=== PATIENT | female | born 1970 | race Asian ===

== ENCOUNTER → 2017-01-02 | Outpatient (CLI) | payer BC ==
[~2017-01-02] MED LIST: COEN75CA PO; FERR1TAB61 PO; FEXO1TAB46 PO; HYDR-5688 PO; MULT1CAP16 PO; PRENTAB26 PO
--- NOTE | 2017-01-03 08:02 | MAMMOGRAPHY REPORT ---
BILATERAL DIGITAL SCREENING MAMMOGRAM TOMOSYNTHESIS WITH CAD: 01/02/2017 CLINICAL HISTORY: Routine screening. Patient has no complaints. TECHNIQUE: Breast tomosynthesis in addition to standard 2D mammography was performed. Current study was also evaluated with a Computer Aided Detection (CAD) system. COMPARISON: No prior exams were available for comparison. BREAST COMPOSITION: The tissue of both breasts is heterogeneously dense, which may obscure small mas ses. FINDINGS: No suspicious mass, architectural distortion or cluster of microcalcifications is seen. IMPRESSION: ACR BI-RADS CATEGORY 1: NEGATIVE There is no mammographic evidence of malignancy. A 1 year screening mammogram is recommended. The pa tient will receive written notification of the results. Approximately 10% of breast cancers are not detected with mammography. A negative mammographic report should not delay biopsy if a clinically suggestive mass is present. Petra graham/jesus:01/02/2017 17:08:07 Manager Planning: Cyndee ROJAS)(Liz), [facility] letter sent: Normal 1/2 BI-RADS Code: ACR BI-RADS Category 1: Negative
== END | disposition home or self-care (01) ==
LOC: C.MAMM 09:05
PROVIDERS: ATTEND Physician Assistant
DX: Z12.31 Encounter for screening mammogram for malignant neoplasm of breast (principal)

== ENCOUNTER → 2017-01-10 | Outpatient (CLI) | payer BC ==
[2017-01-10 14:36] LABS: THYROID STIMULATING HORMONE 1.65 uIu/ml (0.300-4.500)
== END | disposition home or self-care (01) ==
LOC: C.LABBC 11:34
PROVIDERS: ATTEND Physician Assistant
DX: Z87.898 Personal history of other specified conditions (principal); E07.9 Disorder of thyroid, unspecified

== ENCOUNTER → 2017-01-17 | Outpatient (CLI) | payer BC ==
[~2017-01-17] MED LIST changes: -COEN75CA PO; -FERR1TAB61 PO; -FEXO1TAB46 PO; -HYDR-5688 PO; -MULT1CAP16 PO
[2017-01-17 18:36] LABS: BASO % 0.9 %; BASO ABS # 0.06 K/uL (0-0.2); COMPLETE YES; EOS % 3.6 %; HEMATOCRIT 41.9 % (37-47); IG% 0.1 %; LYMPH ABS # 2.16 K/uL (1.2-3.4); MEAN CELL VOLUME 85.7 fL (80-100); MEAN CORPUSCULAR HEMOGLOBIN 26.8 pg (25-34); MEAN CORPUSCULAR HGB CONC 31.3 g/dl (32-36); MEAN PLATELET VOLUME 10.5 fL (7.4-10.4); MONO % 8.3 %; NEUT % 55.1 %; PLATELET COUNT 252 K/uL (130-400); RED BLOOD COUNT 4.89 M/uL (4.2-5.4); WHITE BLOOD COUNT 6.75 K/uL (4.8-10.8)
[2017-01-17 18:59] LABS: ALT/SGPT 26 U/L (12-78); BLOOD UREA NITROGEN 15 mg/dl (7-18); BUN/CREATININE RATIO 19.4 (10-20); CARBON DIOXIDE 28 mmol/L (21-32); CHLORIDE 107 mmol/L (98-107); CREATININE 0.77 mg/dl (0.60-1.20); GLUCOSE 75 mg/dl (70-99); POTASSIUM 4.1 mmol/L (3.5-5.1); SODIUM 141 mmol/L (136-145)
[2017-01-17 19:09] LABS: ALB/GLOB RATIO 1.1 (0.9-2); ALKALINE PHOSPHATASE 69 U/L (45-117); AST/SGOT 17 U/L (15-37)
[2017-01-17 19:47] LABS: LYME DISEASE AB IGG NEG (NEG); LYME DISEASE AB IGM NEG (NEG)
== END | disposition home or self-care (01) ==
LOC: C.LAB 17:32
PROVIDERS: ATTEND Internal Medicine
DX: R53.83 Other fatigue (principal); M79.1 Myalgia

== ENCOUNTER → 2017-05-02 | Outpatient (CLI) | payer BC ==
[~2017-05-02] MED LIST changes: +OPTIRAY 320 IV PRN
--- NOTE | 2017-05-02 16:49 | DIAGNOSTIC IMAGING REPORT ---
ABDOMEN AND PELVIS CT WITH IV AND ORAL CONTRAST CT DOSE: 583.54 mGy.cm HISTORY: R10.9 left lower quadrant abdominal pain, constipation.[id number] TECHNIQUE: Multiaxial CT images of the abdomen and pelvis were performed following the use of intravenous and oral contrast. A dose lowering technique was utilized adhering to the principles of ALARA. COMPARISON STUDY: None. FINDINGS: The lung bases are clear. No pneumoperitoneum. No pneumatosis. The liver, spleen, pancreas, gallbladder, and adrenal glands are unremarkable. The kidneys enhance normally. No hydronephrosis. No retroperitoneal lymphadenopathy. The bladder, uterus, bilateral adnexa are unremarkable. Trace pelvic free fluid. No evidence for bowel obstruction. Moderate to large amount well-formed stool seen throughout the colon. Abnormal appearance to the appendix which is focally distended and fluid-filled on image 317. This measures up to 11 mm in diameter. No surrounding inflammatory change at this time. IMPRESSION: 1. Abnormal appearance to the appendix which is focally distended and fluid-filled measuring up to 11 mm in diameter. There is no definite surrounding inflammatory change at this time. Therefore, this could represent a mucocele or early acute appendicitis. Surgical consultation is recommended. 2. Moderate to large amount of well-formed stool seen throughout the colon. 3. Trace pelvic free fluid which is likely physiologic. 4. No evidence for bowel obstruction. Electronically signed by: Alejo Robins M.D. 05/02/2017 4:47 PM Dictated Date/Time: 05/02/2017 4:38 PM
== END | disposition home or self-care (01) ==
LOC: C.CTS 12:41
PROVIDERS: ATTEND Physician Assistant
DX: R10.9 Unspecified abdominal pain (principal); K59.00 Constipation, unspecified; K38.8 Other specified diseases of appendix

== ENCOUNTER → 2017-05-03 | Outpatient (CLI) | payer BC ==
[~2017-05-03] MED LIST changes: -OPTIRAY 320 IV PRN
[2017-05-03 19:07] LABS: BASO % 0.7 %; BASO ABS # 0.04 K/uL (0-0.2); COMPLETE YES; EOS % 3.9 %; HEMATOCRIT 39.5 % (37-47); IG% 0.2 %; LYMPH % 35.3 %; LYMPH ABS # 2.16 K/uL (1.2-3.4); MEAN CELL VOLUME 85.3 fL (80-100); MEAN CORPUSCULAR HEMOGLOBIN 28.1 pg (25-34); MEAN CORPUSCULAR HGB CONC 32.9 g/dl (32-36); MEAN PLATELET VOLUME 10.7 fL (7.4-10.4); MONO % 8.7 %; NEUT % 51.2 %; PLATELET COUNT 244 K/uL (130-400); RED BLOOD COUNT 4.63 M/uL (4.2-5.4); WHITE BLOOD COUNT 6.12 K/uL (4.8-10.8)
[2017-05-03 19:32] LABS: ALT/SGPT 21 U/L (12-78); AST/SGOT 15 U/L (15-37); BLOOD UREA NITROGEN 14 mg/dl (7-18); BUN/CREATININE RATIO 17.4 (10-20); CARBON DIOXIDE 29 mmol/L (21-32); CHLORIDE 106 mmol/L (98-107); GLUCOSE 81 mg/dl (70-99); SODIUM 141 mmol/L (136-145)
[2017-05-03 19:35] LABS: ALB/GLOB RATIO 1.1 (0.9-2); ALKALINE PHOSPHATASE 74 U/L (45-117)
== END | disposition home or self-care (01) ==
LOC: C.LAB 17:24
PROVIDERS: ATTEND Physician Assistant
DX: R10.9 Unspecified abdominal pain (principal)

== ENCOUNTER → 2017-05-16 | Outpatient (CLI) | payer BC ==
[~2017-05-16] MED LIST changes: +COEN75CA PO; +FERR1TAB61 PO; +FEXO1TAB46 PO; +HYDR-5688 PO; +MULT1CAP16 PO; -PRENTAB26 PO
[2017-05-16 17:37] LABS: BASO % 0.6 %; BASO ABS # 0.03 K/uL (0-0.2); EOS % 4.4 %; HEMATOCRIT 37.6 % (37-47); IG% 0.2 %; LYMPH % 35.8 %; LYMPH ABS # 1.81 K/uL (1.2-3.4); MEAN CELL VOLUME 84.7 fL (80-100); MEAN CORPUSCULAR HEMOGLOBIN 27.3 pg (25-34); MEAN PLATELET VOLUME 10.2 fL (7.4-10.4); MONO % 7.1 %; NEUT % 51.9 %; PLATELET COUNT 180 K/uL (130-400); RED BLOOD COUNT 4.44 M/uL (4.2-5.4); WHITE BLOOD COUNT 5.05 K/uL (4.8-10.8)
[2017-05-16 17:53] LABS: COMPLETE YES; MEAN CORPUSCULAR HGB CONC 32.2 g/dl (32-36)
[2017-05-16 18:47] LABS: LYME DISEASE AB IGG NEG (NEG); LYME DISEASE AB IGM NEG (NEG)
== END | disposition home or self-care (01) ==
LOC: C.LAB 17:07
PROVIDERS: ATTEND Physician Assistant Medical
DX: T14.8XXA Other injury of unspecified body region, initial encounter (principal); W57.XXXA Bitten or stung by nonvenomous insect and other nonvenomous arthropods, initial encounter

== ENCOUNTER 2017-05-17 04:55 | Day surgery (SDC) | payer BC ==
[2017-05-15 09:40] VITALS: BMI 18.0
--- NOTE | 2017-05-15 10:18 | PAT Medication Instructions ---
Service Date May 15, 2017. Current Home Medication List Coenzyme Q10 (Ubidecarenone) (Co Q-10), 1 CAP PO QAM Ferrous Sulfate (Iron), 1 TAB PO DAILY PRN for ANEMIA Fexofenadine Hcl (Lora), 180 MG PO DAILY PRN for ALLERGIES Multiple Vitamins W/ Minerals (Multi Complete), 1 TAB PO QAM Medication Instructions For Your Scheduled Surgery - Do not take the following medications as of 05/15/17: Coenzyme Q10 (Ubidecarenone) (Co Q-10), 1 CAP PO QAM - Do not take the following medications the morning of surgery: Ferrous Sulfate (Iron), 1 TAB PO DAILY PRN for ANEMIA Fexofenadine Hcl (Lora), 180 MG PO DAILY PRN for ALLERGIES Multiple Vitamins W/ Minerals (Multi Complete), 1 TAB PO QAM *nothing at all to eat or drink after midnight* If you have any questions please call us at [phone] or [phone] or [phone]
[~2017-05-17] VITALS: Ht 172.7 cm; Wt 56.2 kg
[~2017-05-17 04:55] MED LIST changes: -HYDR-5688 PO
[2017-05-17] MEDS ORDERED: CEFAZOLIN SOD 1000MG/5 ML IV PUSH IV ONE (05:32)
[2017-05-17 05:52] VITALS: BP 122/50; PULSE 56; TEMP 36.6; O2SAT 100; Ht 172.7 cm; Wt 56.2 kg
[2017-05-17] MEDS ORDERED: CEFAZOLIN 1000MG IV PUSH 5 ML IV SCH (06:00)
[2017-05-17] MEDS ORDERED: LACTATED RINGER'S 1000ML 1,000 ML IV SCH (06:00)
[2017-05-17] MEDS ORDERED: FENTANYL CITRATE INJ 50 MCG/1 ML 2 ML VIAL ONE ×2 (06:31→07:12)
[2017-05-17] MEDS ORDERED: ONDANSETRON INJ 2 MG/ML 2 ML VIAL ONE (06:31)
[2017-05-17] MEDS ORDERED: MIDAZOLAM HCL 1 MG/ML 2ML VIAL ONE (06:31)
[2017-05-17] MEDS ORDERED: PROPOFOL IV EMULSION 10 MG/ML 20 ML VIAL IV ONE (06:31)
[2017-05-17] MEDS ORDERED: DEXAMETHASONE SOD INJ 4 MG/ML VIAL ONE (06:31)
[2017-05-17] MEDS ORDERED: LIDOCAINE HCL 2% 2 ML VIAL (20MG/ML) ONE (06:31)
[2017-05-17] MEDS ORDERED: EpINEphrine INJ 1MG/ML AMP 1 MG/ML AMP ONE (06:41)
[2017-05-17] MEDS ORDERED: BUPIVACAINE 0.5 % 5 MG/1 ML MPF 30ML VIAL ONE (06:42)
--- NOTE | 2017-05-17 06:50 | History & Physical Bridge Note ---
H&P Re-Evaluation Bridge Note: I have examined the patient, reviewed the History & Physical and in the interval since the performance of the History & Physical I have noted the following changes of clinical significance: No changes noted
[2017-05-17] MEDS ORDERED: MEPERIDINE HCL 25 MG/ML CARP IV PRN (07:45)
[2017-05-17] MEDS ORDERED: ONDANSETRON INJ 2 MG/ML 2 ML VIAL IV PRN ×2 (07:45→08:15)
[2017-05-17] MEDS ORDERED: ATROPINE SULFATE 0.1 MG/ML 5ML SYR IV PRN (07:45)
[2017-05-17] MEDS ORDERED: LABETALOL HCL IV 5 MG/ML 20ML IV PRN (07:45)
[2017-05-17] MEDS ORDERED: EpHEDrine SULFATE INJ 50 MG/ML AMP IV PRN (07:45)
[2017-05-17] MEDS ORDERED: HYDROmorphone INJ 1 MG/ML SYR IV PRN (07:45)
[2017-05-17] MEDS ORDERED: SODIUM CHLORIDE 0.9% 1000ML 1,000 ML IV SCH ×2 (08:12→13:15)
[2017-05-17] MEDS ORDERED: HYDR-5688 PO (08:14)
[2017-05-17] MEDS ORDERED: HYDROCODONE/ACETAMOPHEN 5/325MG TAB PO PRN ×2 (08:15)
--- NOTE | 2017-05-17 08:16 | Discharge Instructions ---
Discharge Instructions Date of Service May 17, 2017. Admission Reason for Admission: Mucocele Of Appendix Discharge Discharge Diagnosis / Problem: Mucocele of Appendix Discharge Goals Goal(s): Decrease discomfort, Improve function Activity Recommendations Activity Limitations: as noted below Lifting Limitations: no more than 10 pounds Exercise/Sports Limitations: until after follow-up appointment May Resume Sexual Activity: after follow-up appointment Shower/Bathe: tomorrow Driving or Machine Use: resume 1 day after discharge . Instructions / Follow-Up Instructions / Follow-Up Please follow-up with Dr. Hernandez in the office in 1-2 weeks. Please call the office at [phone] to make a follow-up appointment if you do not have one already. Please call the office with any questions or concerns. Current Hospital Diet Patient's current hospital diet: Discharge Diet Recommended Diet: Regular Diet Procedures Procedures Performed: Laparoscopic Appendectomy, Partial Cecectomy Pending Studies Studies pending at discharge: yes List of pending studies: Pathology report. Medical Emergencies . Who to Call and When: Medical Emergencies: If at any time you feel your situation is an emergency, please call 911 immediately. . Non-Emergent Contact Non-Emergency issues call your: Primary Care Provider, Surgeon Call Non-Emergent contact if: temperature is above 101.5, your pain is not controlled, wound has increased drainage, wound has increased redness . "Provider Documentation" section prepared by Marjorie Aguilera. . VTE Core Measure Inpt VTE Proph given/why not?: SCD's [place] Drug Monitoring Program Search Results: patient reviewed within database, no issues identified
--- NOTE | 2017-05-17 08:26 | [facility] Operative Report ---
Operative Report Operative Date May 17, 2017. Pre-Operative Diagnosis Mucocele of appendix Post-Operative Diagnosis Same Procedure(s) Performed Laparoscopic Appendectomy, Partial Cecectomy Surgeon Dr Hernandez Senior Vice President Surgeon(s) Marjorie Aguilera PA-C Estimated Blood Loss 5ml Findings mucocele of appendix, uterine fibroids, otherwise normal anatomym Specimens A. Appendix and portion of cecum Anesthesia get Complication(s) None Disposition Recovery Room / PACU Description of Procedure After informed consent was obtained the patient was taken the operating room and placed in a supine position. After successful intubation the left arm was tucked and a Jensen catheter was placed. The abdomen was sterilely prepped and draped in usual fashion. A supra umbilical incision through her old scar line was made with 11 blade scalpel and carried down through the soft tissue using electrocautery. The anterior rectus fascia was opened using electrocautery and 2 #0 Vicryl stay sutures were placed. Peritoneum was elevated with hemostats and incised under direct vision using a Metzenbaum scissor. A finger sweep was performed and a 12 mm Fernando trocar was placed. The abdomen was insufflated 18 mmHg. The laparoscope was inserted and the abdomen was examined in 360. A suprapubic 5 mm port and a left lower quadrant 12 mm port were all placed under direct vision. We began by looking around the abdomen. There were 2 small uterine fibroids a little bit of physiologic free fluid in the pelvis otherwise normal examination. There was no evidence of any mucus within the abdomen. There was a dilated enlarged appendix as seen on CAT scan. It was easily mobilized. I began by taking down the mesentery the appendix using a Brown cartridge stapler. I then used a purple cartridge stapler to take a portion of the cecum at the base of the appendix to make sure I got adequate margins. It was then placed into an Endo Catch bag and removed. The staple lines were intact and there was adequate hemostasis. I ran the small bowel bowel backwards for about 8 feet all of which was normal as well. I irrigated the right lower quadrant and pelvis. No other abnormalities were seen and the trochars were all removed and the abdomen was desufflated. The fascia of the camera port as well as left lower quadrant were closed using 0 Vicryl in figure- of-eight fashion. Wounds were irrigated and closed using 4-0 Monocryl. Marcaine and skin glue were used at the end. He was awakened, extubated and transferred recovery in stable condition I attest to the content of the Intraoperative Record and any orders documented therein. Any exceptions are noted below.
[2017-05-17] MEDS: FENTANYL CITRATE INJ 50 MCG/1 ML 2 ML VIAL IV PRN ×2 (08:43→08:52)
[2017-05-17 09:20] VITALS: TEMP 36.6
--- NOTE | 2017-05-17 09:32 | Anesthesiology Progress Note ---
Anesthesia Post Op Note Date & Time May 17, 2017 at 09:32 Vital Signs Pain Intensity: 3 Vital Signs Past 12 Hours Date Time Temp Pulse Resp B/P (MAP) Pulse Ox O2 Delivery O2 Flow Rate FiO2 05/17/17 09:07 50 14 98 05/17/17 09:07 50 14 05/17/17 09:06 111/59 05/17/17 09:02 48 16 99 05/17/17 09:02 48 16 05/17/17 09:01 110/64 05/17/17 08:57 53 14 05/17/17 08:57 36.8 48 16 110/64 (82) 100 Nasal Cannula 2 Oxymask 05/17/17 08:57 52 14 83 05/17/17 08:56 107/58 05/17/17 08:52 48 10 05/17/17 08:52 48 10 96 05/17/17 08:51 101/56 05/17/17 08:47 48 8 05/17/17 08:47 48 8 97 05/17/17 08:46 97/54 05/17/17 08:42 56 11 05/17/17 08:42 57 11 100 05/17/17 08:41 107/56 05/17/17 08:37 56 9 05/17/17 08:37 56 9 100 05/17/17 08:36 112/59 05/17/17 08:32 58 11 05/17/17 08:32 58 11 100 05/17/17 08:31 104/58 05/17/17 08:27 60 13 100 05/17/17 08:27 60 13 05/17/17 08:26 118/61 05/17/17 08:26 118/61 05/17/17 08:23 61 16 100 05/17/17 08:23 61 16 100 05/17/17 08:23 60 16 05/17/17 08:23 60 16 05/17/17 08:21 118/69 05/17/17 08:21 118/69 05/17/17 08:18 74 14 05/17/17 08:18 74 14 05/17/17 08:18 74 14 100 05/17/17 08:18 74 14 100 05/17/17 08:16 127/63 05/17/17 08:16 127/63 05/17/17 08:13 37.0 79 8 132/66 100 Oxymask 10 05/17/17 08:13 78 11 05/17/17 08:13 79 11 132/66 100 05/17/17 08:13 78 11 05/17/17 08:13 79 11 132/66 100 05/17/17 05:52 36.6 56 18 122/50 (74) 100 Room Air Notes Mental Status: alert / awake / arousable, participated in evaluation Pt Amnestic to Procedure: Yes Nausea / Vomiting: adequately controlled Pain: adequately controlled Airway Patency, RR, SpO2: stable & adequate BP & HR: stable & adequate Hydration State: stable & adequate Anesthetic Complications: no major complications apparent
[2017-05-17] MEDS ORDERED: NEOSTIGMINE METHYLSULFATE 5 MG/5 ML SYR ONE (09:57)
[2017-05-17] MEDS ORDERED: GLYCOPYRROLATE INJ 0.2 MG/ML VIAL ONE (09:57)
[2017-05-17] MEDS ORDERED: NURSING VERBAL MED ORDER ONE ×2 (12:30)
[2017-05-17] MEDS ORDERED: NURSING DECISION MEDICATION ORDER SCH (12:30)
[2017-05-17] MEDS ORDERED: LORAZEPAM 0.5 MG TAB SL ONE (13:15)
[2017-05-17 13:30] VITALS: BP 108/55; PULSE 66; O2SAT 100
== END 2017-05-17 14:10 | disposition home or self-care (01) ==
LOC: C.ACU 04:55
PROVIDERS: ATTEND Surgery
DX: K38.8 Other specified diseases of appendix (principal); D25.9 Leiomyoma of uterus, unspecified; R10.9 Unspecified abdominal pain; Z82.49 Family history of ischemic heart disease and other diseases of the circulatory system; Z83.3 Family history of diabetes mellitus; Z86.69 Personal history of other diseases of the nervous system and sense organs

== ENCOUNTER → 2017-06-07 | Outpatient (CLI) | payer BC ==
[~2017-06-07] MED LIST changes: +GADAVIST IV PRN
[2017-06-07 16:40] LABS: BASO % 0.6 %; BASO ABS # 0.03 K/uL (0-0.2); COMPLETE YES; EOS % 3.7 %; HEMATOCRIT 35.6 % (37-47); IG% 0.2 %; LYMPH % 34.9 %; LYMPH ABS # 1.78 K/uL (1.2-3.4); MEAN CORPUSCULAR HEMOGLOBIN 28.3 pg (25-34); MEAN CORPUSCULAR HGB CONC 31.7 g/dl (32-36); MONO % 7.5 %; NEUT % 53.1 %; PLATELET COUNT 234 K/uL (130-400)
[2017-06-07 17:21] LABS: BLOOD UREA NITROGEN 19 mg/dl (7-18); CALCIUM 9.1 mg/dl (8.5-10.1); CARBON DIOXIDE 29 mmol/L (21-32); CHLORIDE 107 mmol/L (98-107); CHOLESTEROL 212 mg/dl (0-200); CREATININE 0.83 mg/dl (0.60-1.20); GLUCOSE 95 mg/dl (70-99); POTASSIUM 3.9 mmol/L (3.5-5.1); SODIUM 143 mmol/L (136-145); TRIGLYCERIDES 117 mg/dl (0-150); VERY LOW DENSITY LIPOPROT CALC 23 mg/dl
[2017-06-07 17:32] LABS: CHOLESTEROL/HDL RATIO 2.9; HDL CHOLESTEROL 74 mg/dl; LDL CHOLESTEROL CALCULATED 115 mg/dl
--- NOTE | 2017-06-07 17:43 | DIAGNOSTIC IMAGING REPORT ---
BRAIN COMBO HISTORY: 46 years-old Female HX CAVERNOUS HEMANGIOMA OF BRAIN ; LIGHT HEADED acute lightheadedness with history of cavernous hemangioma COMPARISON: Brain MR 02/27/2015 TECHNIQUE: Multiplanar multisequence MRI the brain was obtained both with and without the use of 5.5 mL Gadavist FINDINGS: There is no restricted diffusion to suggest acute ischemia. Midline structures including the corpus callosum, brainstem, optic chiasm, pituitary and pineal glands are unremarkable as seen on the sagittal T1 sequence. Cerebellar tonsils extend 7 mm below the foramen magnum compatible with Chiari I malformation. There is no acute intracranial hemorrhage, midline shift, abnormal extra-axial collections, hydrocephalus or intracranial mass identified. There are a few punctate scattered areas of T2/FLAIR prolongation within the subcortical white matter of the cerebral hemispheres bilaterally which appear unchanged. Encephalomalacia of the left temporal lobe redemonstrated with areas of gliosis and encephalomalacia. Circumscribed T2 hyperintense structure of the anterior left middle cranial fossa is again seen, 3.2 x 2.5 cm, previously measuring 3.0 x 2.1 cm following CSF signal on all sequences. There is no abnormal intra-axial or extra-axial enhancement. There is no evidence of mesial temporal sclerosis. The bilateral hippocampi normal. Major flow voids at the level of the skull base are patent. Mastoid air cells are clear. Orbits are symmetric. Moderate polypoid mucosal thickening of the left maxillary sinus with mild mucoperiosteal thickening of the right maxillary and ethmoid sinuses. Moderate mucosal disease of the left frontal sinus. IMPRESSION: 1. No acute intracranial abnormality identified. No acute ischemia or abnormal enhancement. 2. Postoperative changes of the left temporal lobe with encephalomalacia and mild gliosis. Circumscribed T2 hyperintense collection adjacent to the surgical site follows CSF signal on all sequences measuring up to 3.2 x 2.5 cm suggesting a postsurgical arachnoid cyst, slightly increased in size from comparison study. 3. Scattered punctate foci of T2/FLAIR prolongation within the subcortical white matter of the cerebral hemispheres bilaterally is nonspecific. Gliosis from chronic migraines or early chronic microvascular ischemic changes are differential considerations. 4. Paranasal sinus disease as above. 5. Chiari I malformation. The above report was generated using voice recognition software. It may contain grammatical, syntax or spelling errors. Electronically signed by: Abdullahi Santiago M.D. 06/07/2017 5:42 PM Dictated Date/Time: 06/07/2017 5:27 PM
== END | disposition home or self-care (01) ==
LOC: C.MRI 15:57
PROVIDERS: ATTEND Nurse Practitioner Adult Health
DX: R42 Dizziness and giddiness (principal); G93.89 Other specified disorders of brain; J01.80 Other acute sinusitis; G93.5 Compression of brain

== ENCOUNTER → 2017-07-10 | Outpatient (CLI) | payer BC ==
[~2017-07-10] MED LIST changes: -GADAVIST IV PRN
[2017-07-10 13:34] LABS: BASO % 0.6 %; BASO ABS # 0.03 K/uL (0-0.2); COMPLETE YES; HEMATOCRIT 39.8 % (37-47); IG% 0.2 %; LYMPH % 34.9 %; LYMPH ABS # 1.76 K/uL (1.2-3.4); MEAN CELL VOLUME 87.5 fL (80-100); MEAN CORPUSCULAR HEMOGLOBIN 28.4 pg (25-34); MEAN CORPUSCULAR HGB CONC 32.4 g/dl (32-36); MEAN PLATELET VOLUME 10.9 fL (7.4-10.4); MONO % 6.1 %; NEUT % 55.2 %; PLATELET COUNT 214 K/uL (130-400); RED BLOOD COUNT 4.55 M/uL (4.2-5.4); WHITE BLOOD COUNT 5.05 K/uL (4.8-10.8)
[2017-07-10 13:57] LABS: URINE APPEARANCE CLEAR (CLEAR); URINE BILIRUBIN NEG (NEG); URINE COLOR YELLOW; URINE EPITHELIAL CELL AUTO 0-5 /lpf (0-5); URINE NITRITE NEG (NEG); URINE PH 8.5 (4.5-7.5); UROBILINOGEN NEG (NEG)
[2017-07-10 13:58] LABS: MANUAL MICROSCOPIC REQUIRED? NO; REVIEW REQ? NO
[2017-07-10 14:07] LABS: ESTIMATED AVERAGE GLUCOSE 100 mg/dl; HA1C FLAG Normal (Normal)
[2017-07-10 14:24] LABS: BLOOD UREA NITROGEN 14 mg/dl (7-18); BUN/CREATININE RATIO 20.3 (10-20); CALCIUM 9.1 mg/dl (8.5-10.1); CARBON DIOXIDE 29 mmol/L (21-32); CHLORIDE 105 mmol/L (98-107); CREATININE 0.71 mg/dl (0.60-1.20); GLUCOSE 91 mg/dl (70-99); POTASSIUM 3.9 mmol/L (3.5-5.1); SODIUM 139 mmol/L (136-145)
== END | disposition home or self-care (01) ==
LOC: C.LABBC 11:48
PROVIDERS: ATTEND Nurse Practitioner Adult Health
DX: R79.9 Abnormal finding of blood chemistry, unspecified (principal); R63.1 Polydipsia

== ENCOUNTER → 2017-08-18 | Outpatient (CLI) | payer OTHER ==
[2017-08-18 13:40] LABS: OSMOLALITY,URINE 159 mOms/kg (500-800)
[2017-08-18 14:25] LABS: ALBUMIN 3.8 gm/dl (3.4-5.0); ALT/SGPT 36 U/L (12-78); AST/SGOT 21 U/L (15-37); BLOOD UREA NITROGEN 13 mg/dl (7-18); CALCIUM 9.1 mg/dl (8.5-10.1); CARBON DIOXIDE 30 mmol/L (21-32); CREATININE 0.84 mg/dl (0.60-1.20); GLUCOSE 83 mg/dl (70-99); POTASSIUM 3.8 mmol/L (3.5-5.1); SODIUM 138 mmol/L (136-145)
[2017-08-18 14:28] LABS: ALKALINE PHOSPHATASE 69 U/L (45-117); TOTAL PROTEIN 7.6 gm/dl (6.4-8.2)
== END | disposition home or self-care (01) ==
LOC: C.LABBC 10:55
PROVIDERS: ATTEND Internal Medicine Nephrology
DX: R63.1 Polydipsia (principal); R35.8 Other polyuria

== ENCOUNTER → 2018-03-06 | Outpatient (CLI) | payer OTHER ==
[2018-03-06 13:33] LABS: OSMOLALITY,URINE 284 mOms/kg (500-800)
[2018-03-06 13:46] LABS: ALBUMIN 4.2 gm/dl (3.4-5.0); ALKALINE PHOSPHATASE 60 U/L (45-117); ALT/SGPT 24 U/L (12-78); AST/SGOT 17 U/L (15-37); BLOOD UREA NITROGEN 13 mg/dl (7-18); CALCIUM 9.2 mg/dl (8.5-10.1); CARBON DIOXIDE 29 mmol/L (21-32); GLUCOSE 75 mg/dl (70-99); POTASSIUM 3.8 mmol/L (3.5-5.1); SODIUM 139 mmol/L (136-145); TOTAL PROTEIN 7.5 gm/dl (6.4-8.2)
== END | disposition home or self-care (01) ==
LOC: C.LABBC 09:18
PROVIDERS: ATTEND Internal Medicine Nephrology
DX: R63.1 Polydipsia (principal); R35.8 Other polyuria

== ENCOUNTER 2021-07-31 10:20 | Inpatient (IN) ==
--- NOTE | 2021-07-31 10:57 | Emergency Department Note ---
Impression & Plan 2019 novel coronavirus-infected pneumonia (NCIP), Weakness, Hypoxia ED Provider Note Will ask hospitalist for further observation given her dyspnea and weakness with associated desaturations with ambulation. Chuck Mcnair MD DATE OF SERVICE: 07/31/2021 CHIEF COMPLAINT: Weakness, Covid HISTORY OF PRESENT ILLNESS: Patient is a 50-year-old female history of sinusitis, and asthma presenting here today approximately 12 days into Covid illness reporting significant generalized weakness. Evidently a friend sent her a pulse ox today and at home she was 85%. Reports she is had minimal shortness of breath mainly just feels some myalgias and fevers with significant weakness. Denies any falls or trauma but does report she has been a bit lightheaded and has been a bit unsteady on her feet when trying to ambulate to the bathroom at home. Patient does report that since she has been ill she has mainly been in bed resting. Did travel to [facility] for the holidays. Denies signifi cant leg swelling. Reports she had some whitish stools a week or 2 ago and did complete stool testing last week and is unsure of the results. Denies significant abdominal pain. REVIEW OF SYSTEMS: A total of 10 review of systems was obtained and negative except as stated above in the HPI. PAST MEDICAL HISTORY: As noted above MEDICATIONS: Reviewed home medication list SOCIAL HISTORY: Non-smoker, lives at home PHYSICAL EXAM: GENERAL: alert and oriented in no acute distress on stretcher Head: normocephalic and atraumatic EYES: No injection, discharge or icterus. NECK: Trachea midline LUNGS: Airway patent. No retractions. Breath sounds clear with good air entry bilaterally. HEART: Regular rate and rhythm. No chest wall tenderness ABDOMEN: Soft and non-tender, without guarding or rebound. SKIN: Acyanotic, warm, dry, without rashes EXTREMITIES: Without swelling, tenderness or deformity NEUROLOGICAL: No focal deficits. No aphasia. No facial droop or slurred speech. Ambulatory. EK bpm normal sinus rhythm. No PVC or PAC. No acute ST segment elevation or depression with lead III T wave changes. QTC 454. CONTINUOUS CARDIAC MONITORING: was ordered and showed a heart rate of 80s-100s bpm in normal sinus rhythm to sinus tachycardia Patient's laboratory studies and imaging reviewed. Differential includes Infection, dehydration, metabolic abnormality, hypo/hyperglycemia, electrolyte disturbance, anemia, hypoxia, cardiac sources, intracerebral event, toxicologic, neurologic, as well as other pathologies. IMPRESSION/MEDICAL DECISION MAKING: Patient presents approximately 12 days into Covid not vaccinated. Tested positive on July 27. Patient reports generalized weakness primarily. Reports some lightheadedness ambulation. Reports little oxygen level at home and initially here in triage. Patient without significant abdominal pain or chest pain. EKG and troponin were sent but doubt this is ACS. Patient's weakness likely from the viral syndrome. Patient with some recent stool testing for some whitish stools. Reviewed prior testing which was formed not consistent with C. difficile, negative Campylobacter/salmonella/shigella antigen, and negative Shigella toxin. Additional Cyclospora as well as Giardia antigen are pending. Benign abdomen at this time and no believe we need further work-up or imaging here of the abdomen. Blood work here without significant anemia and mild leukopenia consistent with her COVID-19 infection. Not in any extremitas and of the lower suspicion at this time for acute PE. Chest x-ray per my review and radiology report with some nonspecific bilateral lower lung airspace opacities. Moderate CRP elevation at 4.8 and slight AST elevation again consistent with viral Covid symptoms. No severe electrolyte abnormality noted or kidney dysfunction. Troponin is undetectable. Here initially resting on room air with pulse ox in the mid to low 90s. With ambulation the patient becomes tachypneic and a little bit unbala nced and within about a minute desaturates into the high 80s. With rest in bed slowly returns to the low 90s SpO2 and slight oxygen supplementation was applied given her tachypnea. Discussed with her findings. Given a dose of dexamethasone. Given her weakness, shortness of breath, and hypoxia ambulation we will asked the hospitalist to evaluate for further observation in shared decision-making with the patient. DIAGNOSIS: COVID-19 pneumonia, weakness, hypoxia DISPOSITION: Hospitalist will evaluate Patient was agreeable with this plan. Past Med/Surg History Medical History Chest tightness Chronic sinusitis Cough Moderate persistent asthma Moderate persistent asthma with (acute) exacerbation Multiple allergies Peripheral eosinophilia Shortness of breath Vaccination hesitancy by patient Surgical History History of appendectomy History of brain surgery History of sinus surgery Family History Father Cardiac disorder Diabetes Hypertension Hearing loss Lung disease Sister No problems noted. Mother Hypertension Other No family history of adverse response to anesthesia No family history of bleeding disorder Denies family history of Ovarian cancer Prostate cancer Myocardial infarction Breast cancer Lung cancer Colorectal cancer Stroke Social History Smoking Status: Never smoker Second Hand Exposure: Yes; Hx Alcohol Use: No Hx Substance Use: No Visual Impairment: Limited Hearing Ability: Normal marital status: Current Living Situation: Spouse current occupational status: employed and unemployed current occupation: Homemaker How many Children do You have: 1 Feels Safe at Home: Yes Childhood Exposure to Second-Hand Smoke: Yes caffeine: Yes Dental Care, Regularly: Yes Physical Activity Frequency: 1-2 Times per Week Seatbelt Use: always Sunscreen Use: No Allergies Allergies Allergy/AdvReac Type Severity Reaction Status Date / Time contact metal agent Allergy Unknown Verified 07/31/21 10:43 house dust Allergy Unknown Verified 07/31/21 10:43 No Known Drug Allergies Allergy Unknown Verified 07/31/21 10:43 pollen extracts Allergy Unknown Verified 07/31/21 10:43 Home Meds Home Medications Medication Instructions Recorded Confirmed multivitamin (Daily Multi-Vitamin) 1 tab PO QAM 05/22/19 07/31/21 coenzyme Q10 100 mg capsule 100 mg PO HS 02/14/21 07/31/21 (CoQ-10) Previous Rx's Medication Instructions Recorded fluticasone propionate 50 2 spray INTRANASAL DAILY #16 g 07/07/21 mcg/actuation nasal spray,suspension (Allergy Relief (fluticasone)) acyclovir 5 % topical ointment 1 applic TOPICAL 6XD 7 Days #5 g 07/26/21 Results & Data (ED) Vital Signs Vital Signs - 24 hr 07/31/21 10:28 07/31/21 11:01 07/31/21 12:21 Temperature 37.2 C Temperature Source Skin Pulse Rate 94 H Pulse Rate [Apical] 79 Pulse Rate [Exercises] Pulse Rhythm Regular Pulse Strength Normal Respiratory Rate 20 20 Respiratory Rate [Exercises] Respiratory Effort / Characteristics Non-Labored Spontaneous Short of Breath Non-Labored Respiratory Depth Normal Normal Respiratory Pattern Regular Regular Blood Pressure 121/72 Blood Pressure [Left Arm] 101/63 Blood Pressure Mean 88 Blood Pressure Mean [Left Arm] 75 Pulse Oximetry 89 L 94 93 Pulse Oximetry [Exercises] Oxygen Delivery Method Room Air Room Air Room Air Oxygen Flow Rate Sepsis Recent Fever Within 48 Hours Yes Sepsis New/Unexplained Change in Mental Status N/A Sepsis Action Taken by Nursing No Action Required 07/31/21 12:39 07/31/21 14:00 07/31/21 16:00 Temperature Temperature Source Pulse Rate Pulse Rate [Apical] 69 64 Pulse Rate [Exercises] 89 Pulse Rhythm Pulse Strength Respiratory Rate 15 13 Respiratory Rate [Exercises] 26 H Respiratory Effort / Characteristics Respiratory Depth Respiratory Pattern Blood Pressure Blood Pressure [Left Arm] 107/67 106/61 Blood Pressure Mean Blood Pressure Mean [Left Arm] 80 76 Pulse Oximetry 97 98 Pulse Oximetry [Exercises] 88 L Oxygen Delivery Method Room Air Nasal Cannula Nasal Cannula Oxygen Flow Rate 1 2 Sepsis Recent Fever Within 48 Hours Sepsis New/Unexplained Change in Mental Status Sepsis Action Taken by Nursing Laboratory Data Result diagrams: 07/31/21 10:50 07/31/21 10:50 Lab Results 07/31/21 07/31/21 Range/Units 10:50 10:50 WBC 4.19 L (4.8-10.8) K/uL RBC 4.62 (4.2-5.4) M/uL Hgb 12.7 (12.0-16.0) g/dL Hct 38.8 (37-47) % MCV 84.0 (80-100) fL MCH 27.5 (25-34) pg MCHC 32.7 (32-36) g/dL RDW Std Deviation 38.6 (36.4-46.3) fL RDW Coeff of Anthony 12.6 (11.5-14.5) % Plt Count 210 (130-400) K/uL MPV 10.4 (7.4-10.4) fL Immature Gran % (Auto) 0.2 % Neut % (Auto) 65.7 % Lymph % (Auto) 21.0 % Pershing % (Auto) 11.2 % Eos % (Auto) 1.4 % Baso % (Auto) 0.5 % Neut # (Auto) 2.75 (1.4-6.5) K/uL Lymph # (Auto) 0.88 L (1.2-3.4) K/uL Pershing # (Auto) 0.47 (0.11-0.59) K/uL Eos # (Auto) 0.06 (0-0.5) K/uL Baso # (Auto) 0.02 (0-0.2) K/uL Immature Gran # (Auto) 0.01 (0.00-0.02) K/uL Sodium 136 (136-145) mmol/L Potassium 3.7 (3.5-5.1) mmol/L Chloride 105 (98-107) mmol/L Carbon Dioxide 26 (21-32) mmol/L Anion Gap 5.0 (3-11) BUN 10 (7-18) mg/dl Creatinine 0.81 (0.6-1.2) mg/dl Est Cr Clr Drug Dosing 78.6 ml/min Est GFR ( Amer) 98.2 ml/min Est GFR (Non-Af Amer) 84.7 ml/min BUN/Creatinine Ratio 12.1 (10-20) Glucose 105 H (70-99) mg/dl Calcium 8.3 L (8.5-10.1) mg/dl Total Bilirubin 0.5 (0.2-1) mg/dl AST 48 H (15-37) U/L ALT 50 (12-78) Alkaline Phosphatase 87 (45-117) U/L Troponin I < 0.015 (0-0.045) ng/ml C-Reactive Protein 4.81 H (0-0.29) mg/dl Total Protein 7.2 (6.4-8.2) gm/dl Albumin 2.9 L (3.4-5.0) gm/dl Globulin 4.3 H (2.5-4.0) gm/dl Albumin/Globulin Ratio 0.7 L (0.9-2) Administered Medications Discontinued Medications Dexamethasone Sodium Phosphate (DexamethasonePf 10 Mg/Ml Vial) 6 mg IV NOW ONE Stop: 07/31/21 12:45 Last Admin: 07/31/21 13:19 Dose: 6 mg Documented by: [id number] Imaging Data Radiologist's Impression: Chest X-Ray 07/31/21 10:46 XR chest 1V portable CLINICAL HISTORY: Dyspnea, COVID TECHNIQUE: Single frontal radiograph of the chest was obtained. Comparison: Comparison is made to chest one view 02/14/2021 FINDINGS: No lines and tubes are seen. The cardiomediastinal silhouette is normal. Bilateral lower lung predominant airspace opacities are seen. No evidence of pleural effusion or pneumothorax. IMPRESSION: Bilateral lower lung predominant airspace opacities which may represent atelectasis, pneumonia, and/or aspiration. ACT 112: Negative or not required by law. Electronically signed by: Tom Brumfield M.D. 07/31/2021 11:34 AM Discharge Plan Visit Data Chief Complaint: Shortness of Breath/Dyspnea Stated Complaint: LOW O2 (85), COVID 19 CONFIRMED, SOB ED Provider: Chuck Mcnair Discharge Problem: 2019 novel coronavirus-infected pneumonia (NCIP), Weakness, Hypoxia Patient Disposition: Being Evaluated by Hospitalist Forms Stand Alone Forms: My [facility] Prescriptions Prescriptions: No Action acyclovir 5 % ointment 1 applic topical 6XD 7 Days Qty: 5 RF: 1 fluticasone propionate [Allergy Relief (fluticasone)] 50 mcg/actuation spray,suspension 2 spray intranasal DAILY Qty: 16 RF: 2 multivitamin [Daily Multi-Vitamin] tablet 1 tab PO QAM RF: 0 coenzyme Q10 [CoQ-10] 100 mg Capsule 100 mg PO HS RF: 0 Referrals Referrals: Lupe Vidal MD [Primary Care Provider] -
[2021-07-31 11:00] LABS: Basophils # (auto) 0.02 K/uL (0-0.2); Basophils % (auto) 0.5 %; Eosinophils # (auto) 0.06 K/uL (0-0.5); Eosinophils % (auto) 1.4 %; Hematocrit (blood only) 38.8 % (37-47); Hemoglobin 12.7 g/dL (12.0-16.0); Immature Granulocytes # (auto) 0.01 K/uL (0.00-0.02); Immature Granulocytes % (auto) 0.2 %; Lymphocytes # (auto) 0.88 K/uL (1.2-3.4); Mean Corpuscular Hemoglobin 27.5 pg (25-34); Mean Corpuscular Hgb Conc 32.7 g/dL (32-36); Mean Platelet Volume 10.4 fL (7.4-10.4); Monocytes # (auto) 0.47 K/uL (0.11-0.59); Monocytes % (auto) 11.2 %; Neutrophils # (auto) 2.75 K/uL (1.4-6.5); Neutrophils % (auto) 65.7 %; Platelet Count 210 K/uL (130-400); RDW Coefficient of Variation 12.6 % (11.5-14.5); RDW Standard Deviation 38.6 fL (36.4-46.3); Red Blood Count 4.62 M/uL (4.2-5.4); White Blood Count 4.19 K/uL (4.8-10.8)
[2021-07-31 11:33] LABS: Alanine Aminotransferase 50 (12-78); Albumin Level 2.9 gm/dl (3.4-5.0); Aspartate Aminotransferase 48 U/L (15-37); BUN Creatinine Ratio 12.1 (10-20); Blood Urea Nitrogen 10 mg/dl (7-18); C Reactive Protein 4.81 mg/dl (0-0.29); Calcium 8.3 mg/dl (8.5-10.1); Carbon Dioxide 26 mmol/L (21-32); Chloride 105 mmol/L (98-107); Creatinine Clr Calc Pharmacy 78.6 ml/min; Est GFR (African American) 98.2 ml/min; Est GFR (Non-African American) 84.7 ml/min; Glucose 105 mg/dl (70-99); Potassium 3.7 mmol/L (3.5-5.1); Sodium 136 mmol/L (136-145)
--- NOTE | 2021-07-31 11:35 | XRay Report ---
XR chest 1V portable CLINICAL HISTORY: Dyspnea, COVID TECHNIQUE: Single frontal radiograph of the chest was obtained. Comparison: Comparison is made to chest one view 02/14/2021 FINDINGS: No lines and tubes are seen. The cardiomediastinal silhouette is normal. Bilateral lower lung predomi nant airspace opacities are seen. No evidence of pleural effusion or pneumothorax. IMPRESSION: Bilateral lower lung predominant airspace opacities which may represent atelectasis, pneumonia, and/o r aspiration. ACT 112: Negative or not required by law. Electronically signed by: Tom Brumfield M.D. 07/31/2021 11:34 AM
[2021-07-31 11:39] LABS: Bilirubin,Total 0.5 mg/dl (0.2-1)
[2021-07-31 11:41] LABS: Albumin Globulin Ratio 0.7 (0.9-2); Alkaline Phosphatase 87 U/L (45-117); Globulin 4.3 gm/dl (2.5-4.0); Total Protein 7.2 gm/dl (6.4-8.2); Troponin I < 0.015 ng/ml (0-0.045)
[2021-07-31] MEDS ORDERED: dexAMETHasone**PF** 10 MG/ML VIAL IV ONE (12:44)
--- NOTE | 2021-07-31 14:20 | History & Physical Report ---
Date of Service July 31, 2021 Assessment & Plan (1) 2019 novel coronavirus-infected pneumonia (NCIP): Plan: CXR with bibasilar infiltrates, day 12 of infection, mild hypoxia with saturations 88% on room air at rest and exertion dropped further admit to medical floor Dexamethasone 6mg IV daily too far along for Remdesivir and not ill enough for baricitinib CRP is 4 flutter valve and incentive spirometer eating and drinking well, she is euvolemic, no need for IV fluids repeat CMP, CRP in morning strongly consider getting 2 step in morning and getting her home on oral dexamethasone (2) Hypoxia: Plan: borderline, but she was 88% on room air at rest and exertion dropped a little further stable on 2L, no increased work of breathing main issue is cough and dyspnea on exertion would get a 2 step tomorrow (3) Weakness: Plan: day 12 of illness just needs supportive care (4) Moderate persistent asthma: Plan: no wheezing on exam (5) Peripheral eosinophilia: History of Present Illness Chief Complaint: I feel weak Primary Care Provider: Lupe Vidal MD 50 yo female with history of moderate asthma and allergic rhinitis, presents to the ED with 12 days of feeling ill. She said that she had weakness, poor appetite and fatigue. She started to develop a cough on exertion and her coughing spells would get intense to the point of feeling nauseated and needing to vomit. She has not had any dyspnea at rest or really any coughing at rest. She had a low grade fever at the beginning of her symptoms but no recent fever/chills or sweats. She came to the ED for evaluation, found to be positive for COVID and CXR shows mild infiltrates in lower lobes. She was 88% on room air and dropped a little further on exertion, placed on 2L and saturations 96- 98%, feeling well. She got dexamethasone IV in the ED. Asked to admit for COVID pneumonia, mild hypoxia. She refused to get COVID vaccine. She believes she had COVID in January 2021 as she had a fever and lost her sense of smell and then had some dyspnea but she never got tested, recovered quickly without any need for hospitalization. Allergies Allergy/AdvReac Type Severity Reaction Status Date / Time contact metal agent Allergy Unknown Verified 07/31/21 10:43 house dust Allergy Unknown Verified 07/31/21 10:43 No Known Drug Allergies Allergy Unknown Verified 07/31/21 10:43 pollen extracts Allergy Unknown Verified 07/31/21 10:43 Home Medications Medication Instructions Recorded Confirmed Type multivitamin (Daily Multi-Vitamin) 1 tab PO QAM 05/22/19 07/31/21 History coenzyme Q10 100 mg capsule 100 mg PO HS 02/14/21 07/31/21 History (CoQ-10) fluticasone propionate 50 2 spray INTRANASAL DAILY #16 g 07/07/21 07/31/21 Rx mcg/actuation nasal spray,suspension (Allergy Relief (fluticasone)) acyclovir 5 % topical ointment 1 applic TOPICAL 6XD 7 Days #5 g 07/26/21 07/31/21 Rx Past Med/Surg History Medical History Chest tightness Chronic sinusitis Cough Moderate persistent asthma Moderate persistent asthma with (acute) exacerbation Multiple allergies Peripheral eosinophilia Shortness of breath Vaccination hesitancy by patient Surgical History History of appendectomy History of brain surgery History of sinus surgery Family History Father Cardiac disorder Diabetes Hypertension Hearing loss Lung disease Sister No problems noted. Mother Hypertension Other No family history of adverse response to anesthesia No family history of bleeding disorder Denies family history of Ovarian cancer Prostate cancer Myocardial infarction Breast cancer Lung cancer Colorectal cancer Stroke Social History Smoking Status: Never smoker Second Hand Exposure: Yes; Hx Alcohol Use: No Hx Substance Use: No Visual Impairment: Limited Hearing Ability: Normal marital status: Current Living Situation: Spouse current occupational status: employed and unemployed current occupation: Homemaker How many Children do You have: 1 Feels Safe at Home: Yes Childhood Exposure to Second-Hand Smoke: Yes caffeine: Yes Dental Care, Regularly: Yes Physical Activity Frequency: 1-2 Times per Week Seatbelt Use: always Sunscreen Use: No Review of Systems Review of Systems: All systems reviewed & are unremarkable except as noted in HPI & below Physical Exam Physical Exam: General: well developed, well nourished, no acute distress, comfortable Neck: supple, trachea midline, normal thyroid Lungs: clear to auscultation bilaterally, normal respiratory effort, no accessory muscle use, no distress Heart: regular S1 and S2, no murmur, peripheral pulses normal, capillary refill normal, no edema Abdomen: soft, NT, ND, + BS, no hepatomegaly, normal to percussion Extremities: normal in appearance, no cyanosis, no petechiae, strength is 5/5 bilaterally Neuro: awake, cooperative, moves all extremities, no focal motor deficits, CN II-XII intact, sensation in extremities intact, normal speech Skin: warm, dry, no rash, normal turgor Psych: Awake, alert oriented x 3, euthymic affect Results & Data Results & Data ([facility]) Vital Signs (Past 12 Hours) Vital Signs Temp Pulse Pulse Pulse Resp Resp BP 07/31/21 12:39 89 26 H 07/31/21 12:21 79 20 07/31/21 11:01 07/31/21 10:28 37.2 C 94 H 20 121/72 BP Pulse Ox Pulse Ox 07/31/21 12:39 88 L 07/31/21 12:21 101/63 93 07/31/21 11:01 94 07/31/21 10:28 89 L Laboratory Results Laboratory Results - last 24 hr 07/31/21 07/31/21 10:50 10:50 WBC 4.19 L RBC 4.62 Hgb 12.7 Hct 38.8 MCV 84.0 MCH 27.5 MCHC 32.7 RDW Std Deviation 38.6 RDW Coeff of Anthony 12.6 Plt Count 210 MPV 10.4 Immature Gran % (Auto) 0.2 Neut % (Auto) 65.7 Lymph % (Auto) 21.0 Burnett % (Auto) 11.2 Eos % (Auto) 1.4 Baso % (Auto) 0.5 Neut # (Auto) 2.75 Lymph # (Auto) 0.88 L Burnett # (Auto) 0.47 Eos # (Auto) 0.06 Baso # (Auto) 0.02 Immature Gran # (Auto) 0.01 Sodium 136 Potassium 3.7 Chloride 105 Carbon Dioxide 26 Anion Gap 5.0 BUN 10 Creatinine 0.81 Est Cr Clr Drug Dosing 78.6 Est GFR ( Amer) 98.2 Est GFR (Non-Af Amer) 84.7 BUN/Creatinine Ratio 12.1 Glucose 105 H Calcium 8.3 L Total Bilirubin 0.5 AST 48 H ALT 50 Alkaline Phosphatase 87 Troponin I < 0.015 C-Reactive Protein 4.81 H Total Protein 7.2 Albumin 2.9 L Globulin 4.3 H Albumin/Globulin Ratio 0.7 L Code Status & VTE Plan VTE Prophylaxis Plan VTE Prophylaxis will be ordered: Yes PG Care Time/CCT Total # of Minutes Spent Total Time Spent with Patient: Total time spent is greater than 50% in coordination of care (as documented) at patient's floor/unit and/or counseling patient: Coding Level of Care Code 46033 Initial Inpt Care Lvl 2 Diagnoses 2019 novel coronavirus-infected pneumonia (NCIP) U07.1; J12.82 Hypoxia R09.02 Weakness R53.1 Moderate persistent asthma J45.40 Peripheral eosinophilia D72.19
[2021-07-31] MEDS ORDERED: ONDANSETRON INJ 2 MG/ML 2 ML VIAL IV PRN (17:23)
[2021-07-31] MEDS ORDERED: ACETAMINOPHEN 325 MG TAB PO PRN (17:23)
[2021-07-31 17:25] LABS: Appearance Urine Clear (Clear); Bacteria Urine Automated Negative (Negative); Bilirubin Urine Negative (Negative); Blood Urine Negative (Negative); Color Urine Yellow; Epithelial Cell Urine Auto >30 /lpf (0-5); Glucose Urine UA Negative (Negative); Ketones Urine Trace (Negative); Leukocyte Esterase Urine 1+ (Negative); Nitrite Urine Negative (Negative); Protein Urine Negative (Negative); RBC Urine Automated 0-4 /hpf (0-4); Specific Gravity Urine 1.012 (1.000-1.030); Urobilinogen Urine Negative (Negative)
[2021-07-31] MEDS: ENOXAPARIN INJ 30 MG/0.3 ML SYR SQ SCH (18:27)
[2021-07-31] MEDS: ACYCLOVIR 5% OINT 15 GM TUBE EXT SCH ×2 (19:32→23:16)
[2021-08-01] MEDS: ACYCLOVIR 5% OINT 15 GM TUBE EXT SCH ×6 (06:28→21:48)
[2021-08-01] MEDS: FLUTICASONE PROPIONATE NA SPR 16 GM BTL NAE SCH (08:44)
[2021-08-01] MEDS: dexAMETHasone 6 MG in SYRINGE 0 ML IV SCH (08:44)
[2021-08-01] MEDS: ENOXAPARIN INJ 30 MG/0.3 ML SYR SQ SCH ×2 (08:44→21:38)
[2021-08-01 10:23] LABS: Albumin Level 2.9 gm/dl (3.4-5.0); BUN Creatinine Ratio 25.3 (10-20); C Reactive Protein 4.9 mg/dl (0-0.29); Calcium 9.2 mg/dl (8.5-10.1); Creatinine Clr Calc Pharmacy 99.4 ml/min; Est GFR (African American) 120.6 ml/min; Est GFR (Non-African American) 104.1 ml/min
[2021-08-01 10:26] LABS: Albumin Globulin Ratio 0.6 (0.9-2); Globulin 4.7 gm/dl (2.5-4.0); Total Protein 7.6 gm/dl (6.4-8.2)
[2021-08-01 10:32] LABS: Bilirubin,Total 0.3 mg/dl (0.2-1)
--- NOTE | 2021-08-01 21:05 | Hospitalist Progress Note ---
Date of Service August 01, 2021 Assessment & Plan (1) 2019 novel coronavirus-infected pneumonia (NCIP): Plan: Day 13 of infection. Mild acute hypoxic respiratory failure on small amount of NC O2. Day # 2 of IV dexamethasone 6mg daily. Not a candidate for Remdesivir and does not meet criteria for baricitinib. CRP is 4. I gave patient a handout on proning. Encouraged use of flutter valve and incentive spirometer. Cont to wean FiO2. Hopefully home next 1-2 days. (2) Hypoxia: Plan: Mild acute hypoxic respiratory failure. Stable, wean FiO2 as tolerated. (3) Weakness: Plan: 2nd #1. Supportive care. (4) Moderate persistent asthma: Plan: no wheezing on exam today. I would suggest that at least for the remainder of the winter she resume her symbicort. I discussed this with her today. (5) Peripheral eosinophilia: Plan: Seen summer 2020. Likely due to allergies, etc. No eosinophilia at this time. Plan: add melatonin for sleep DVT proph - lovenox 30mg BID Admission and Anticipated Discharge Date Admission Date: July 31, 2021 Subjective patient is feeling pretty good today reports cough - mainly dry fatigue sleeping ok eating poorly fever blisters on lips has unusual taste/impaired taste in mouth but no ulcers or sores in the mouth no bowel movement today no nausea Review of Systems Review of Systems: gen - no fevers, no chills cv - no chest pain pulm - no dyspnea at rest; some mild TALAMANTES GI - no abd pain Physical Exam Physical Exam: gen - tired-appearing but nontoxic, NAD neck - no JVD HENT - lips with resolving fever blister; tongue with dry MM, no lesions, no thrush heart - RRR, s1 s2, no murmur lungs - bibasilar rales, CTA b/l, no wheeze, no increased work of breathing abd - soft NT ND BS+ ext - no edema Results & Data Results & Data ([facility]) Vital Signs (Past 12 Hours) Vital Signs Temp Pulse Resp BP Pulse Ox 08/01/21 19:07 36.6 C 56 L 18 113/70 95 08/01/21 15:15 36.5 C 59 L 18 119/81 96 Laboratory Results AST/ALT wnl bmp wnl PG Care Time/CCT Total # of Minutes Spent Total Time Spent with Patient: Total time spent is greater than 50% in coordination of care (as documented) at patient's floor/unit and/or counseling patient: Coding Level of Care Code 08598 Subseq Hosp Care Lvl 2 Diagnoses 2019 novel coronavirus-infected pneumonia (NCIP) U07.1; J12.82 Hypoxia R09.02 Weakness R53.1 Moderate persistent asthma J45.40 Peripheral eosinophilia D72.19
[2021-08-01] MEDS: MELATONIN 3 MG TAB PO SCH (21:37)
--- NOTE | 2021-08-01 21:48 | Electrocardiogram Report ---
Test Reason : Blood Pressure : / mmHG Vent. Rate : 080 BPM Atrial Rate : 080 BPM P-R Int : 152 ms QRS Dur : 090 ms QT Int : 394 ms P-R-T Axes : 073 120 041 degrees QTc Int : 454 ms Normal sinus rhythm Possible Left atrial enlargement Right axis deviation Nonspecific T wave abnormality Abnormal ECG When compared with ECG of 14-FEB-2021 13:43, Questionable change in QRS axis Confirmed by Ez Smith ([id number]) on 08/01/2021 9:48:23 PM Referred By: REFERRED SELF Confirmed By:Ez Smith
[2021-08-02] MEDS: ACYCLOVIR 5% OINT 15 GM TUBE EXT SCH ×6 (06:48→22:27)
[2021-08-02 07:25] LABS: Creatinine Clr Calc Pharmacy 92.2 ml/min; Est GFR (African American) 117.6 ml/min; Est GFR (Non-African American) 101.5 ml/min; Potassium 3.9 mmol/L (3.5-5.1)
[2021-08-02] MEDS: FLUTICASONE PROPIONATE NA SPR 16 GM BTL NAE SCH (09:28)
[2021-08-02] MEDS: ENOXAPARIN INJ 30 MG/0.3 ML SYR SQ SCH ×2 (09:28→21:11)
[2021-08-02] MEDS: dexAMETHasone 6 MG in SYRINGE 0 ML IV SCH (09:29)
--- NOTE | 2021-08-02 11:27 | Hospitalist Progress Note ---
Date of Service August 02, 2021 Assessment & Plan (1) 2019 novel coronavirus-infected pneumonia (NCIP): Plan: IMPROVING albeit slowly. Day 14 of infection. Mild acute hypoxic respiratory failure on small amount of NC O2. O2 weaned off today at rest. Day # 3 of IV dexamethasone 6mg daily. Not a candidate for Remdesivir and does not meet criteria for baricitinib. CRP is 4. Will repeat in am. Encouraged proning. Encouraged use of flutter valve and incentive spirometer. Hopefully home tomorrow. (2) Hypoxia: Plan: Mild acute hypoxic respiratory failure. Stable, improving. (3) Weakness: Plan: 2nd #1. Supportive care. (4) Moderate persistent asthma: Plan: no wheezing on exam today. I would suggest that at least for the remainder of the winter she resume her symbicort. (5) Peripheral eosinophilia: Plan: Seen summer 2020. Likely due to allergies, etc. No eosinophilia at this time. (6) Orthostasis: Plan: orthostatics + today, and patient is indeed dizzy w/ standing. 500cc NS bolus x 1. repeat orthos after. encouraged PO intake. Plan: DVT proph - lovenox 30mg BID check a baseline d-dimer tomorrow am updated pt's Jerson this evening by phone Admission and Anticipated Discharge Date Admission Date: July 31, 2021 Subjective patient states that when she ambulated to the bathroom today she felt dizzy/lightheaded no vertigo she is trying to drink more fluids appetite still not robust continues with fatigue coughing but improved dyspnea but improved tele wnl Review of Systems Review of Systems: gen - no fevers or chills pulm - no significant sputum; no dyspnea at rest GI - no N/V/D CV - no orthopnea, no chest pain Physical Exam Physical Exam: gen - tired-appearing but nontoxic, NAD neck - no JVD HENT - lips with resolving fever blister; tongue and MM still dry heart - RRR, s1 s2, no murmur lungs - bibasilar rales remain, airation good, no wheezing abd - soft NT ND BS+ ext - no edema, pulses 2+ b/l Results & Data Results & Data ([facility]) Vital Signs (Past 12 Hours) Vital Signs Temp Pulse Resp BP Pulse Ox 08/02/21 07:36 36.5 C 59 L 16 102/59 L 99 Laboratory Results Laboratory Results - last 24 hr 08/02/21 06:17 Sodium 138 Potassium 3.9 Chloride 107 Carbon Dioxide 23 Anion Gap 8.0 BUN 22 H Creatinine 0.69 Est Cr Clr Drug Dosing 92.2 Est GFR ( Amer) 117.6 Est GFR (Non-Af Amer) 101.5 BUN/Creatinine Ratio 32.0 H Glucose 106 H Calcium 9.0 PG Care Time/CCT Total # of Minutes Spent Total Time Spent with Patient: Total time spent is greater than 50% in coordination of care (as documented) at patient's floor/unit and/or counseling patient: Coding Level of Care Code 44619 Subseq Hosp Care Lvl 2 Diagnoses 2019 novel coronavirus-infected pneumonia (NCIP) U07.1; J12.82 Hypoxia R09.02 Weakness R53.1 Moderate persistent asthma J45.40 Peripheral eosinophilia D72.19 Orthostasis I95.1
[2021-08-02] MEDS: POLYETHYLENE (MIRALAX) 17 GM PACK PO SCH (12:16)
[2021-08-02] MEDS: SENNA 8.6 MG TAB PO SCH (12:16)
[2021-08-02] MEDS ORDERED: SODIUM CHLORIDE 0.9% 1000ML 500 ML IV ONE (15:42)
[2021-08-02] MEDS: MELATONIN 3 MG TAB PO SCH (21:12)
[2021-08-03 06:57] LABS: Hemoglobin 12.4 g/dL (12.0-16.0); Mean Corpuscular Hemoglobin 27.4 pg (25-34); Mean Corpuscular Hgb Conc 32.6 g/dL (32-36); Mean Corpuscular Volume 84.1 fL (80-100); Mean Platelet Volume 10.3 fL (7.4-10.4); Platelet Count 338 K/uL (130-400); RDW Coefficient of Variation 12.6 % (11.5-14.5); RDW Standard Deviation 38.5 fL (36.4-46.3); Red Blood Count 4.52 M/uL (4.2-5.4); White Blood Count 8.58 K/uL (4.8-10.8)
[2021-08-03 07:08] LABS: D Dimer 360 ug/L FEU (0-500)
[2021-08-03 07:28] LABS: BUN Creatinine Ratio 33.1 (10-20); Calcium 8.8 mg/dl (8.5-10.1); Creatinine Clr Calc Pharmacy 107.9 ml/min; Est GFR (African American) 123.9 ml/min; Est GFR (Non-African American) 106.9 ml/min; Potassium 3.8 mmol/L (3.5-5.1)
[2021-08-03 07:31] LABS: C Reactive Protein 0.98 mg/dl (0-0.29)
[2021-08-03] MEDS: ACYCLOVIR 5% OINT 15 GM TUBE EXT SCH ×4 (07:37→16:04)
[2021-08-03] MEDS: POLYETHYLENE (MIRALAX) 17 GM PACK PO SCH (10:26)
[2021-08-03] MEDS: ENOXAPARIN INJ 30 MG/0.3 ML SYR SQ SCH (10:26)
[2021-08-03] MEDS: dexAMETHasone 6 MG in SYRINGE 0 ML IV SCH (10:26)
[2021-08-03] MEDS: SENNA 8.6 MG TAB PO SCH (10:26)
[2021-08-03] MEDS: FLUTICASONE PROPIONATE NA SPR 16 GM BTL NAE SCH (10:27)
--- NOTE | 2021-08-03 15:13 | Discharge Summary ---
Date of Service date of admission - July 31, 2021 date of discharge - August 03, 2021 Admission HPI Per Admitting Provider 50 yo female with history of moderate asthma and allergic rhinitis, presents to the ED with 12 days of feeling ill. She said that she had weakness, poor appetite and fatigue. She started to develop a cough on exertion and her coughing spells would get intense to the point of feeling nauseated and needing to vomit. She has not had any dyspnea at rest or really any coughing at rest. She had a low grade fever at the beginning of her symptoms but no recent fever/chills or sweats. She came to the ED for evaluation, found to be positive for COVID and CXR shows mild infiltrates in lower lobes. She was 88% on room air and dropped a little further on exertion, placed on 2L and saturations 96- 98%, feeling well. She got dexamethasone IV in the ED. Asked to admit for COVID pneumonia, mild hypoxia. She refused to get COVID vaccine. She believes she had COVID in January 2021 as she had a fever and lost her sense of smell and then had some dyspnea but she never got tested, recovered quickly without any need for hospitalization. Principal Diagnosis acute hypoxic respiratory failure 2nd to COVID-19 pneumonia Discharge Exam gen - a/o x 3, NAD neck - no JVD HENT - lips with resolving fever blister; MMM heart - RRR, s1 s2, no murmur lungs - mild bibasilar rales remain, airation good, no wheezing abd - soft NT ND BS+ ext - no edema, pulses 2+ b/l Discharge Data Allergies Allergy/AdvReac Type Severity Reaction Status Date / Time contact metal agent Allergy Unknown Verified 07/31/21 10:43 house dust Allergy Unknown Verified 07/31/21 10:43 No Known Drug Allergies Allergy Unknown Verified 07/31/21 10:43 pollen extracts Allergy Unknown Verified 07/31/21 10:43 Procedures Performed ambulatory 2-step oxygen test - no need for home O2 Ordered Studies Chest X-Ray 07/31/21 10:46 XR chest 1V portable CLINICAL HISTORY: Dyspnea, COVID TECHNIQUE: Single frontal radiograph of the chest was obtained. Comparison: Comparison is made to chest one view 02/14/2021 FINDINGS: No lines and tubes are seen. The cardiomediastinal silhouette is normal. Bilateral lower lung predominant airspace opacities are seen. No evidence of pleural effusion or pneumothorax. IMPRESSION: Bilateral lower lung predominant airspace opacities which may represent atelectasis, pneumonia, and/or aspiration. ACT 112: Negative or not required by law. Electronically signed by: oTm Brumfield M.D. 07/31/2021 11:34 AM Hospital Course (1) 2019 novel coronavirus-infected pneumonia (NCIP): b/l COVID-19 pneumonia with resulting mild acute hypoxic respiratory fa ilure. O2 weaned off prior to discharge. Received 4 days of IV dexamethasone 6mg daily while here. Not a candidate for Remdesivir and did not meet criteria for Baricitinib treatment. Passed ambulatory 2-step oxygen test on day of discharge. Will complete 6 more days of dexamethasone at home. She had no evidence of complicating CHF or bacterial superinfection while hospitalized. She is already established with [facility], Dr Aponte, due to pre-existing asthma. (2) Acute respiratory failure with hypoxia: Mild - 2nd to #1. Resolved. O2 weaned off by time of discharge. Passed 2-step oxygen test. (3) Weakness: 2nd #1. Supportive care. Improved with IV fluids, steroids, etc. (4) Moderate persistent asthma: No significant wheezing on exam throughout her stay. I suggested that she resume her symbicort and follow-up closely with Dr Aponte from pulmonary post-discharge. (5) Peripheral eosinophilia: Seen summer 2020. Likely due to allergies, etc. No eosinophilia during this visit. (6) Orthostasis: Patient complained of dizziness and orthostatic BPs were indeed positive. s/p IV fluids with improvement. She had had poor oral intake leading up to the admission which contributed to this issue. (7) DVT prophylaxis: Gave patient the option of Xarelto prophylaxis at home post-discharge. She opted for such, and will complete Xarelto 10mg po daily x 30 days at home. Total Time Total Time Spent Total Time Spent (In Minutes): 40 Discharge Plan Discharge Items Patient Disposition: Home - Self-Care Reason For Visit: COVID-19 Pneumonia Discharge Diagnosis: 1. COVID-19 pneumonia - improving 2. Dehydration - improved/resolved 3. Asthma Activity: As commented below Sexual Activity: Wait until after follow-up appointment Exercise/Sports: Wait until after follow-up appointment Driving/Machine Use: Resume 3 days after discharge Non-emergency contact: Primary Care Provider and Ergonomics Engineer Call non-emergency contact if: you have any medication questions, your symptoms worsen and you have a fever Follow-up/Referrals: Lupe Vidal MD [Primary Care Provider] - 08/16/21 2:00 pm Bipin Aponte MD [Physician] - 08/06/21 (see Dr Aponte as previously scheduled ) Diet: Regular Addtl Attending Provider Instructions: Ms Welch, You were hospitalized for COVID-19 pneumonia. You were treated with a combination of steroids, oxygen, and other supportive care. Your oxygen was weaned off on 08/02/21. An ambulatory oxygen test on 08/03/21 showed that you do NOT need oxygen at home during your recovery. In addition, you had some mild dizziness/lightheadedness due to dehydration from your illness. This improved with IV fluids. Recommendations - 1. COVID-19 pneumonia - * take dexamethasone steroid - 6mg once daily with food x 6 days. Start this tomorrow on 08/04/2021. * ok to take aicr-zsw-uqdnbvx mucinex up to 1200mg twice daily for cough as needed/desired * continue your breathing exercises with your flutter valve and your incentive spirometry device; continue them for at least another week 2. For prevention of DVT blood clots and pulmonary emboli (blood clots in lungs) - * take Xarelto 10mg once daily x 30 days; start this tomorrow, 08/04/21 * see instructions below regarding Xarelto * Xarelto is a low-dose blood thinner 3. Asthma - * albuterol (rescue inhaler) - 2 puffs via your spacer device every 4-6 hours as needed for cough, wheezing or shortness of breath * RESUME your symbicort inhaler - 2 puffs twice daily every day; rinse your mouth with water after taking the medication * follow-up with Dr Aponte as scheduled --- please call their office tomorrow to see if this will be IN-PERSON or a VIRTUAL visit; tell them that you just had COVID-19 and were hospitalized 4. You are unlikely to be contagious to others at this time. You do not need to isolate at home. However, with that said, plan to spend the next few days at home resting and recovering. 5. Continue to wear a mask any time you leave your home. 6. Check your oxygen levels on your finger with the pulse oximeter 3-4 times each day. If you are consistently 90% or higher these are acceptable readings. If you are less than 90% consistently please seek medical attention. 7. Obtain a flu shot in about 3-4 weeks if you haven't had one. 8. Strongly consider the COVID vaccine in about 3 months. You can contract COVID more than once. You are at higher risk because of your asthma. 9. It is important to listen to your body during the recovery period. If you are tired it is ok to rest/nap. You are going to feel more tired than usual and you won't be back to 100% for a week or two, if not longer. Try not to "over do it - gradually increase your activities. You may experience some mild shortness of breath with activity during your recovery as well. 10. constipation - * can take miralax eboq-pma-ejnuxls daily and/or * nefj-hus-vxngygv senakot daily 11. Shoot for about 1500-2000cc of fluids daily, at minimum, to maintain good hydration. Juice, water, gatorade, etc are all acceptable fluids to maintain your hydration. Your appetite will gradually return to normal, especially with the use of the steroids. 12. For any nausea may use ondansetron 4mg every 6 hours as needed. This was sent to [facility] for you. Follow-up - see separate section Return to [facility] if - * you have fevers over 100 degrees * you have worsening shortness of breath * your pulse oximetry readings are less than 90% consistently * you have bleeding from any location as listed below * you have chest pains * any other concerns It was our pleasure caring for you at [facility]! Please continue to feel better, Dr Trujillo Addtl Visor Installer Provider Instructions: Blood Thinner (Anticoagulation) Medication Instructions: For reasons not entirely understood having COVID-19 infection, in some individuals, increases the chances of developing DVT blood clots of the legs and blood clots of the lungs. To prevent blood clots during your recovery we are prescribing you a blood thinner named XARELTO. * You should take your medication exactly as directed. * Never skip a dose. * Never take a double dose. If you miss a dose, take it as soon as you remember. Call your Primary Care doctor if you experience any of the following: * Swelling or Pain in your leg * Sudden, continuous pain deep in a muscle * Pain that worsens when you are active or when you stand still for a long time * Chest Pain * Sudden Shortness of Breath * Rapid or pounding heart beat * Fainting * Dizziness * Cough with blood or bloody sputum * Sweating more than normal * Bruises * Heavy or uncontrolled bleeding * Blood in your urine, stool or vomit * Black or tarry stools * Heavy nose bleeding Caring for Your Self at Home: * Avoid sitting, standing or lying down for long periods without moving your legs and feet * When traveling by car, stop to get out and move around at least once every 3 hours * On long airplane, train or bus rides, get up and move around when possible * If you can't get up, wiggle your toes and tighten your calves to keep your blood moving Pending Studies at Discharge: No Stand-Alone Forms: My [facility] [place] Slides, Smoking Cessation Medications and DC Order Prescriptions: New budesonide-formoterol [Symbicort] 160-4.5 mcg/actuation HFA aerosol inhaler 2 inh inhalation BID Qty: 10.2 RF: 1 (DME) Aerochamber Plus Flow-Vu Spacer See Rx Instructions .Route Qty: 1 RF: 0 ondansetron 4 mg tablet,disintegrating 4 mg PO Q6H PRN (Reason: nausea and vomiting) Qty: 10 RF: 0 Xarelto 10 mg tablet 10 mg PO DAILY 30 Days Qty: 30 RF: 0 Continued acyclovir 5 % ointment 1 applic topical 6XD 7 Days Qty: 5 RF: 1 fluticasone propionate [Allergy Relief (fluticasone)] 50 mcg/actuation spray,suspension 2 spray intranasal DAILY Qty: 16 RF: 2 multivitamin [Daily Multi-Vitamin] tablet 1 tab PO QAM RF: 0 coenzyme Q10 [CoQ-10] 100 mg Capsule 100 mg PO HS RF: 0 Discharge Orders: Discharge Order (Routine); Ordered 08/03/21 Ordered By: Toi Morales/Other Patient Handouts: Dexamethasone Oral Tablet 6 mg, Symbicort Metered Dose Inhaler 160mcg/4.5mcg (60 actuations), Xarelto Oral Tablet 10 mg, COVID-19 Home Care, [facility] COVID-19 Admission Data Admit Date/Time: 07/31/21 14:44 Attending Provider: Toi Trujillo Admit Provider: Tom Mccormick Primary Care Provider: Lupe Vidal Other Providers: Tom Mccormick Other Interventions: Discharge Summary Assessment (RN) Last Done: 08/03/21 15:19 Coding Level of Care Code D/C DAY MANAGEMENT >30 MINS Diagnoses 2019 novel coronavirus-infected pneumonia (NCIP) U07.1; J12.82 Weakness R53.1 Moderate persistent asthma J45.40 Peripheral eosinophilia D72.19 Orthostasis I95.1 Acute respiratory failure with hypoxia J96.01 DVT prophylaxis Z29.9
== END 2021-08-03 17:15 | disposition home or self-care (01) | DRG 177 ==
LOC: ED 10:20 → EDINP 14:44 → SUATTDRO 14:44 → 2W 17:27

== ENCOUNTER 2022-09-08 19:51 | Inpatient (IN) ==
--- NOTE | 2022-09-08 20:32 | Emergency Department Note ---
History of Present Illness General Chief complaint: Hip Pain Stated complaint: FELL HURT L HIP, UNABLE TO MOVE LEG Time Seen by Provider: 09/08/22 20:31 History of Present Illness Maximum Pain Intensity: 4 This 51-year-old female patient presents to the emergency department with her and son for evaluation of left hip pain. She states that she stepped off of a high step on the [facility] and fell onto the left hip. She is now unable to move the left leg or bear weight on the leg. She denies hitting her head. No loss of consciousness. Denies any neck or back pain. No pain of the other extremities. Has not taken anything for pain yet. No previous injuries to the left hip. She denies any chance of . She is not on any blood thinners. She stopped Symbicort 2 weeks ago and has had sinus congestion since that time. Denies any other URI symptoms or fevers. History of chronic sinusitis. Home Medications Medication Instructions Recorded Confirmed Type inhalational spacing device #1 ea 08/03/21 04/26/22 Rx (Aerochamber Plus Flow-Vu) fluticasone propionate 50 2 spray intranasal DAILY PRN 12/14/21 09/08/22 History mcg/actuation nasal allergy symptoms spray,suspension (Allergy Relief (fluticasone)) budesonide-formoterol HFA 160 2 inh inhalation BID PRN 02/17/22 09/08/22 History mcg-4.5 mcg/actuation aerosol CONGESTION/COUGH/SOB/WHEEZING inhaler (Symbicort) multivitamin (Daily Multi-Vitamin 1 tab PO QAM PRN NEEDED PER PT 02/17/22 0 09/08/22 History tablet) vitamin B complex 1 cap PO DAILY PRN NEEDED PER PT 03/03/22 09/08/22 History cranberry 500 mg capsule 500 mg PO DAILY 09/08/22 09/08/22 History omega 2-ein-zeg-fish oil 1,000 mg 1 cap PO DAILY 09/08/22 09/08/22 History (120 mg-180 mg) capsule (Fish Oil) vit A 7,160 unit-vit C 113 mg-vit 1 tab PO DAILY PRN NEEDED PER 09/08/22 09/08/22 History E 100 nggp-xyem-xriudi tablet PT. 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 Mother Hypertension Other No family history of adverse response to anesthesia No family history of bleeding disorder Denies family history of Ovarian cancer Prostate cancer Myocardial infarction Breast cancer Lung cancer Colorectal cancer Stroke Social History Smoking Status: Never smoker Second Hand Exposure: No; Hx Alcohol Use: No Hx Substance Use: No Preferred Language: Algerian Communication Ability: Effective Visual Impairment: Limited Hearing Ability: Normal Concrete Batcher Required: No Beliefs That Will Affect Care: None marital status: Current Living Situation: Spouse current occupational status: employed and unemployed current occupation: Homemaker How many Children do You have: 1 Feels Safe at Home: Yes Childhood Exposure to Second-Hand Smoke: Yes caffeine: Yes (tea daily ) Dental Care, Regularly: Yes Physical Activity Frequency: 1-2 Times per Week Seatbelt Use: always Sunscreen Use: No Assistive Devices: None Review of Systems See HPI for pertinent positives & negatives. Physical Exam Vital Signs Vital Signs - 24 hr 09/08/22 20:07 09/08/22 23:05 Temperature 36.6 C Temperature Source Temporal Artery Scan Pulse Rate 79 76 Respiratory Rate 18 Respiratory Effort / Characteristics Non-Labored Spontaneous Respiratory Depth Normal Blood Pressure 135/90 Blood Pressure Mean 105 Blood Pressure Position Sitting Pulse Oximetry 100 Oxygen Delivery Method Room Air Sepsis Recent Fever Within 48 Hours No Sepsis New/Unexplained Change in Mental Status No Sepsis Action Taken by Nursing No Action Required VITALS: Vitals are noted on the nurse's note and reviewed by myself. GENERAL: No acute distress, non-diaphoretic. SKIN: The skin was without obvious lacerations or abrasions. Capillary reflex less than 2 seconds. HEAD: Normocephalic. No scalp tenderness or step-offs felt. EYES: Pupils equal round and reactive to light and accommodation. Conjunctivae without injection, sclerae without icterus. Extraocular movements intact. NOSE: Patent without discharge. Sinus congestion heard on exam. No sinus tenderness. No septal hematoma or bleeding. MOUTH: Mucous membranes moist. Pharynx without erythema or exudate. Uvula midline. Airway patent. Tongue does not deviate. NECK: Supple without nuchal rigidity. Cervical spine is nontender. Full range of motion of the neck without tenderness. HEART: Regular rate and rhythm without murmurs gallops or rubs. LUNGS: Clear to auscultation bilaterally without wheezes, rales or rhonchi. No retractions or accessory muscle use. CHEST: No chest wall tenderness. ABDOMEN: Positive bowel sounds x 4. Normal tympanic percussion. Soft, nontender, without masses or organomegaly. No guarding or rebound tenderness. MUSCULOSKELETAL: No tenderness of the thoracic or lumbar spine. No tenderness with pelvic rocking. The patient is tender to palpation over the lateral and anterior aspect of the left hip. Any range of motion causes significant pain of the left hip. However, she does feel some comfort with the hip slightly flexed. 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 No tenderness to palpation of the left femur, knee, tib-fib, ankle, or foot. Full range of motion of the left knee, but does cause some discomfort in the left hip. Full range of motion of the left ankle and toes. Dorsalis pedis and posterior tibial pulse 2+ bilaterally. Normal color and warmth of the left lower extremity. Full range of motion without tenderness to palpation in all remaining extremities. The patient is unable to bear any weight on the left leg, therefore, gait was not tested. NEURO: Patient was alert and oriented to person place and time. Normal mental status exam. Normal sensation to light and sharp touch of the left lower extremity. No focal neurological deficits. Course Administered Medications Sodium Chloride (Nss 1000ml) 1,000 mls @ 250 mls/hr IV .Q4H EDINSON Stop: 09/09/22 01:44 Last Admin: 09/08/22 22:54 Dose: 250 mls/hr Documented By: QGV Discontinued Medications Acetaminophen (Acetaminophen 500 Mg Tab) 1,000 mg PO NOW STA Stop: 09/08/22 23:06 Last Admin: 09/08/22 23:15 Dose: 1,000 mg Documented By: RADHA Morphine Sulfate (Morphine Sulfate 2 Mg/Ml Carp) 2 mg IV ONE PRN PRN Reason: pain Last Admin: 09/08/22 23:17 Dose: 2 mg Documented By: RADHA Medical Decision Making Differential Diagnosis Differential diagnosis includes hip fracture/subluxation/dislocation, pelvic fracture, contusion, intracranial etiology, intra-abdominal trauma, chest trauma, or others. Laboratory Data Attestation: I reviewed the patient's lab results. 09/08/22 22:24 09/08/22 22:24 Lab Results 09/08/22 09/08/22 09/08/22 Range/Units 22:24 22:24 22:24 WBC 12.99 H (4.8-10.8) K/ul RBC 4.63 (4.20-5.40) M/uL Hgb 12.9 (12.0-16.0) g/dl Hct 39.1 (37.0-47.0) % MCV 84.4 (80.0-100.0) fL MCH 27.9 (25.0-34.0) pg MCHC 33.0 (32.0-36.0) g/dL RDW Std Deviation 38.0 (36.4-46.3) fL RDW Coeff of Anthony 12.5 (11.5-14.5) % Plt Count 255 (130-400) K/uL MPV 10.3 (9.4-12.4) fL Immature Gran % (Auto) 0.7 % Neut % (Auto) 77.9 % Lymph % (Auto) 12.6 % Houghton % (Auto) 4.8 % Eos % (Auto) 3.5 % Baso % (Auto) 0.5 % Neut # (Auto) 10.11 H (1.40-6.50) K/uL Lymph # (Auto) 1.64 (1.2-3.4) K/uL Houghton # (Auto) 0.63 H (0.11-0.59) K/uL Eos # (Auto) 0.46 (0-0.50) K/uL Baso # (Auto) 0.06 (0-0.2) K/uL Immature Gran # (Auto) 0.09 (0.01-0.20) K/uL Sodium 139 (136-145) mmol/L Potassium 3.8 (3.5-5.1) mmol/L Chloride 107 (98-107) mmol/L Carbon Dioxide 26 (21-32) mmol/L Anion Gap 6 (3-11) BUN 18 (6-23) mg/dl Creatinine 0.65 (0.6-1.2) mg/dl Est Cr Clr Drug Dosing Not Reportable Est GFR ( Amer) 119.1 ml/min Est GFR (Non-Af Amer) 102.8 ml/min BUN/Creatinine Ratio 27.7 H (10-20) Glucose 103 H (70-99(Fasting)) mg/dl Calcium 9.5 (8.5-10.1) mg/dl Total Bilirubin 0.4 (0.2-1.0) mg/dl AST 25 (13-39) U/L ALT 21 (7-52) U/L Alkaline Phosphatase 62 (34-104) U/L Total Protein 7.3 (6.0-8.3) gm/dl Albumin 4.5 (3.4-5.0) gm/dl Globulin 2.8 (2.5-4.0) gm/dl Albumin/Globulin Ratio 1.6 (0.9-2) SARS-CoV-2, RNA, NAAT POSITIVE A* (NEGATIVE) Imaging Data Attestation: I personally reviewed and interpreted this imaging study as follows: My Impression: Left hip and pelvis x-ray with subcapital fracture of the left hip. Chest x-ray with no acute cardiopulmonary etiology. Radiology report still pending. MDM Narrative I examined the patient. The patient declined any medication for pain while in the emergency department. The patient was unable to bear any weight on the left leg and had significant pain with any range of motion of the left hip. She does feel more comfortable with the left hip slightly flexed. No other pain or tenderness to palpation on exam. She did not hit her head and does not have any exam findings or concerning history to suggest intracranial injury. X-rays of the left hip and pelvis were interpreted by myself and show a left subcapital hip fracture. Radiology report is still pending. The patient still declined any medication for pain while in the emergency department stating that as long as she did not move the hip she did not have any pain. She was neurovascularly intact. Additional work-up and plan for admission was then initiated due to the hip fracture. EKG was interpreted by myself as normal sinus rhythm at 73 bpm with left posterior fascicular block which is unchanged compared to her previous EKG. No acute ST or T wave changes. Chest x-ray was interpreted by myself as negative for acute cardiopulmonary etiology. Radiology report is still pending. White blood cell count elevated at 12.99 with normal hemoglobin at 12.9. Coags were normal. CMP essentially normal. Urinalysis was still pending at the time of this dictation. The patient's COVID did come back positive. The patient noted nasal congestion since stopping her Symbicort 2 weeks ago, but denied any other URI symptoms or fevers. She does have a history of chronic sinusitis and thought that her congestion was secondary to her chronic sinusitis and stopping the Symbicort. I discussed the case with the on-call hospitalist who agreed to admit the patient for further evaluation and treatment and management of the hip fracture by orthopedics in the morning. Please refer to their dictation for further details. The patient's care was transferred in stable condition. Impression & Plan Closed left hip fracture, COVID-19 Discharge Plan Visit Data Chief Complaint: Hip Pain Stated Complaint: FELL HURT L HIP, UNABLE TO MOVE LEG ED Provider: Siva Baker ED Midlevel Provider: Radha Jolly Discharge Problem: Closed left hip fracture, COVID-19 Patient Disposition: Admitted As Inpatient Condition: Good Forms Stand Alone Forms: [employer] Prescriptions Prescriptions: No Action fluticasone propionate [Allergy Relief (fluticasone)] 50 mcg/actuation spray,suspension 2 spray intranasal DAILY PRN (Reason: allergy symptoms) Rx Instructions: administer into each nostril vitamin B complex Capsule 1 cap PO DAILY PRN (Reason: NEEDED PER PT) budesonide-formoterol [Symbicort] 160-4.5 mcg/actuation HFA aerosol inhaler 2 inh inhalation BID PRN (Reason: CONGESTION/COUGH/SOB/WHEEZING) Rx Instructions: use with spacer device multivitamin [Daily Multi-Vitamin] Tablet 1 tab PO QAM PRN (Reason: NEEDED PER PT) (DME) Aerochamber Plus Flow-Vu Spacer See Rx Instructions .Route Qty: 1 0RF Rx Instructions: As directed cranberry 500 mg Capsule 500 mg PO DAILY Rx Instructions: administer with meals omega 3-lgg-qkt-fish oil [Fish Oil] 1,000 mg (120 mg-180 mg) Capsule 1 cap PO DAILY Eye Vitamin and Minerals 7,160-113-100 sryd-si-urkm Tablet 1 tab PO DAILY PRN (Reason: NEEDED PER PT.) Referrals Referrals: Fred Andrews DO [Primary Care Provider] -
[2022-09-08] MEDS ORDERED: SODIUM CHLORIDE 0.9% 1000ML 1,000 ML IV SCH (21:45)
--- NOTE | 2022-09-08 22:13 | History & Physical Report ---
Date of Service September 08, 2022 Assessment & Plan (1) Hip fracture, left: Plan: 51yo Female with PMH asthma here for fall, hip fracture. Left hip fracture -seen on hip/pelvis XR -left extremity neurovascularly intact -ortho consulted -CBC CMP PT/INR pending -PRN tylenol, morphine for pain -NPO midnight Asthma -CXR wnl -PRN albuterol inhaler -ordered mucinex, flonase FENa: NPO Code Status: full Dispo: med/surg Amber Cochran D.O. PGY 2, FCM (2) Exacerbation of asthma: History of Present Illness Chief Complaint: Hip fracture Primary Care Provider: Fred Andrews DO 51yo Female with PMH asthma here for fall, hip fracture. Patient states earlier today she was walking on [facility] [employer] looking for her car, misjudged where the steps were and walked off a ledge, landed on her feet however felt unsteady and fell on her left side did not hit her head. Since then she feels pain moving her left leg. XR demonstrates fracture of left hip. Patient can still move both feet has sensation in both feet, does not have bruising on her hip, no pain on light touch.. She denies any nausea fever pain elsewhere rashes. Patient states she has recently stopped her symbicort for her asthma given she did not like congestion side effect, states her congestion has been worse since. She denies smoking alcohol, not currently on blood thinners Allergies Allergy/AdvReac Type Severity Reaction Status Date / Time contact metal agent Allergy Intermediate Rash Verified 09/08/22 22:10 house dust Allergy Intermediate SNEEZING/CO Verified 09/08/22 22:14 NGESTION pollen extracts Allergy Intermediate SNEEZING/CONGESTION/ASTHMA Verified 09/08/22 22:14 ATTACK Home Medications Medication Instructions Recorded Confirmed Type inhalational spacing device #1 ea 08/03/21 09/09/22 Rx (Aerochamber Plus Flow-Vu) fluticasone propionate 50 2 spray intranasal DAILY PRN 12/14/21 09/08/22 History mcg/actuation nasal allergy symptoms spray,suspension (Allergy Relief (fluticasone)) budesonide-formoterol HFA 160 2 inh inhalation BID PRN 02/17/22 09/08/22 History mcg-4.5 mcg/actuation aerosol CONGESTION/COUGH/SOB/WHEEZING inhaler (Symbicort) multivitamin (Daily Multi-Vitamin 1 tab PO QAM PRN NEEDED PER PT 02/17/22 09/08/22 History tablet) vitamin B complex 1 cap PO DAILY PRN NEEDED PER PT 03/03/22 09/08/22 History cranberry 500 mg capsule 500 mg PO DAILY 09/08/22 09/08/22 History omega 1-erv-kzo-fish oil 1,000 mg 1 cap PO DAILY 09/08/22 09/08/22 History (120 mg-180 mg) capsule (Fish Oil) vit A 7,160 unit-vit C 113 mg-vit 1 tab PO DAILY PRN NEEDED PER 09/08/22 09/08/22 History E 100 vinp-kgut-xzrmrb tablet PT. Past Med/Surg History Medical History 2019 novel coronavirus-infected pneumonia (NCIP) Abnormality of lung on CXR Cavernous hemangioma of brain Chiari malformation type I Chronic sinusitis Compliance poor History of COVID-19 History of seizure disorder Moderate persistent asthma with (acute) exacerbation Multiple allergies Seborrheic dermatitis Vaccination hesitancy by patient Surgical History H/O colonoscopy 03/2014 repeat 10 yrs History of appendectomy History of brain surgery (~2013) [facility] [place] History of sinus surgery Family History Father Cardiac disorder Diabetes Hypertension Hearing loss Lung disease Sister No problems noted. Mother Hypertension Other No family history of adverse response to anesthesia No family history of bleeding disorder Denies family history of Ovarian cancer Prostate cancer Myocardial infarction Breast cancer Lung cancer Colorectal cancer Stroke Social History Smoking Status: Never smoker Second Hand Exposure: No; Hx Alcohol Use: No Hx Substance Use: No Preferred Language: Estonian Communication Ability: Effective Visual Impairment: Limited Hearing Ability: Normal Development Technical Lead Required: No Beliefs That Will Affect Care: None marital status: Current Living Situation: Spouse current occupational status: employed and unemployed current occupation: Homemaker How many Children do You have: 1 Feels Safe at Home: Yes Safety Concerns: Feels Safe At This Time Childhood Exposure to Second-Hand Smoke: Yes caffeine: Yes (tea daily ) Dental Care, Regularly: Yes Physical Activity Frequency: 1-2 Times per Week Seatbelt Use: always Sunscreen Use: No Assistive Devices: None Review of Systems Review of Systems: see hpi Physical Exam Constitutional: WD/WN, vitals as above Eyes: PERRL, conjunctivae normal, anicteric sclerae ENMT: external ear and nose normal, oropharynx normal Neck: trachea midline, no thyromegaly Respiratory: Auscultation: + wheezes (b/l lower lobes with ongoing cough) Cardiovascular: RRR, no murmur, no edema Vessels: dorsalis pedis pulses present Gastrointestinal (Abdomen): normal bowel sounds, soft, nontender, no hepatosplenomegaly Skin: no rashes, warm and dry Neurologic: normal touch/pain/proprioception and moves all extremities Results & Data Results & Data ([facility]) Vital Signs (Past 12 Hours) Vital Signs Temp Pulse Resp BP Pulse Ox O2 Del Method 09/08/22 20:07 36.6 C 79 18 135/90 100 Room Air Supervising Physician Co-Signing Physician Notes Attending addendum: I have physically seen this patient, have supervised the medical residents activities, and agree with the H&P unless as otherwise noted. Assessment and Plan: Closed left hip fracture- N.p.o. after midnight Acetaminophen 650 mg p.o. every 6 hours as needed mild pain or fever Morphine 2 mg IV every 4 hours as needed moderate pain Morphine sulfate 4 mg IV every 4 hours as needed severe pain NSS + KCl 20 mEq at 80 mils per hour Consult orthopedic surgery Asthma- Continue budesonide-formoterol Albuterol HFA 2 puffs 4 times daily as needed Mucinex and Flonase as written COVID-19 positive on screening testing for admission- No specific symptoms at this time. Would have low threshold for adding steroids due to history of asthma if becomes symptomatic during visit Remaining orders and notations as noted Resident Activity Tracking Resident Involvement: Resident Care Provided Care Provided: Adult Hospital Medicine
[2022-09-08 22:47] LABS: Basophils # (auto) 0.06 K/uL (0-0.2); Basophils % (auto) 0.5 %; Eosinophils # (auto) 0.46 K/uL (0-0.50); Eosinophils % (auto) 3.5 %; Hematocrit (blood only) 39.1 % (37.0-47.0); Hemoglobin 12.9 g/dl (12.0-16.0); Immature Granulocytes # (auto) 0.09 K/uL (0.01-0.20); Immature Granulocytes % (auto) 0.7 %; Lymphocytes # (auto) 1.64 K/uL (1.2-3.4); Lymphocytes % (auto) 12.6 %; Mean Corpuscular Hemoglobin 27.9 pg (25.0-34.0); Mean Corpuscular Volume 84.4 fL (80.0-100.0); Mean Platelet Volume 10.3 fL (9.4-12.4); Monocytes # (auto) 0.63 K/uL (0.11-0.59); Monocytes % (auto) 4.8 %; Neutrophils # (auto) 10.11 K/uL (1.40-6.50); Neutrophils % (auto) 77.9 %; Platelet Count 255 K/uL (130-400); RDW Coefficient of Variation 12.5 % (11.5-14.5); Red Blood Count 4.63 M/uL (4.20-5.40); White Blood Count 12.99 K/ul (4.8-10.8)
[2022-09-08 22:56] LABS: Alanine Aminotransferase 21 U/L (7-52); Albumin Globulin Ratio 1.6 (0.9-2); Albumin Level 4.5 gm/dl (3.4-5.0); Alkaline Phosphatase 62 U/L (34-104); Anion Gap 6 (3-11); Aspartate Aminotransferase 25 U/L (13-39); BUN Creatinine Ratio 27.7 (10-20); Bilirubin,Total 0.4 mg/dl (0.2-1.0); Blood Urea Nitrogen 18 mg/dl (6-23); Calcium 9.5 mg/dl (8.5-10.1); Carbon Dioxide 26 mmol/L (21-32); Chloride 107 mmol/L (98-107); Est GFR (African American) 119.1 ml/min; Est GFR (Non-African American) 102.8 ml/min; Globulin 2.8 gm/dl (2.5-4.0); Glucose 103 mg/dl (70-99(Fasting)); Potassium 3.8 mmol/L (3.5-5.1); Sodium 139 mmol/L (136-145); Total Protein 7.3 gm/dl (6.0-8.3)
[2022-09-08] MEDS ORDERED: ACETAMINOPHEN 500 MG TAB PO STA (23:05)
[2022-09-08] MEDS ORDERED: MoRPHine SULFATE 2 MG/ML CARP IV PRN (23:05)
[2022-09-08] MEDS ORDERED: LIDOCAINE 2% JELLY 5 ML TUBE EXT ONE (23:06)
[2022-09-08 23:31] LABS: Partial Thromboplastin Time 26.5 Seconds (21.0-31.0); Prothrombin Time 10.3 Seconds (9.0-12.0)
[2022-09-08 23:48] LABS: Appearance Urine Clear (Clear); Bacteria Urine Automated Negative (Negative); Bilirubin Urine Negative (Negative); Blood Urine Negative (Negative); Cast Urine Automated 0 /lpf (0-5); Color Urine Yellow; Epithelial Cell Urine Auto 0-5 /lpf (0-5); Glucose Urine UA Negative (Negative); Ketones Urine Negative (Negative); Leukocyte Esterase Urine Trace (Negative); Nitrite Urine Negative (Negative); Protein Urine Negative (Negative); RBC Urine Automated 0-4 /hpf (0-4); Specific Gravity Urine 1.007 (1.000-1.030); Urobilinogen Urine Negative (Negative)
[2022-09-09] MEDS ORDERED: ALBUTEROL HFA 8 GM INHALER INH PRN (01:52)
[2022-09-09] MEDS ORDERED: MoRPHine SULFATE 2 MG/ML CARP IV PRN (01:52)
[2022-09-09] MEDS ORDERED: POLYETHYLENE (MIRALAX) 17 GM PACK PO PRN (01:52)
--- NOTE | 2022-09-09 08:04 | XRay Report ---
XR hip LT 2V w pelvis CLINICAL HISTORY: fall, left hip pain TECHNIQUE: 6 views of the right hip and single frontal view of the pelvis were obtained. Comparison: None available at the time of this dictation. FINDINGS: There is a subcapital fracture of the left hip. Joint spaces are well-preserved. Soft tissue swelling is seen. IMPRESSION: Subcapital fracture of the left hip with associated soft tissue swelling. ACT 112: Negative or not required by law. Electronically signed by: Tom Brumfield M.D. 09/09/2022 8:03 AM
--- NOTE | 2022-09-09 08:13 | XRay Report ---
XR chest 1V portable CLINICAL HISTORY: pre-op TECHNIQUE: Single frontal radiograph of the chest was obtained. Comparison: Comparison is made to chest radiograph 09/03/2021 FINDINGS: No lines and tubes are seen. The cardiomediastinal silhouette is normal. The lungs are clear. No evid ence of pleural effusion or pneumothorax. IMPRESSION: No acute chest disease. ACT 112: Negative or not required by law. Electronically signed by: Tom Brumfield M.D. 09/09/2022 8:09 AM
[2022-09-09] MEDS: FLUTICASONE PROPIONATE NA SPR 16 GM BTL SCH ×2 (08:30→22:11)
[2022-09-09] MEDS: FLUTICASONE/VILANTEROL 200/25MCG 14 PUFFS/INHALER INH SCH (08:30)
[2022-09-09] MEDS: guaiFENesin 600 MG TABCR PO SCH ×2 (08:30→22:11)
[2022-09-09] MEDS: ACETAMINOPHEN 325 MG TAB PO PRN (08:30)
--- NOTE | 2022-09-09 09:34 | Orthopedic Consultation ---
Date of Service September 09, 2022 Assessment & Plan (1) Closed left hip fracture: NPO. Plan for surgical fixation today with Dr. Schaefer. We will plan for cannulated screw fixation of the left hip but be prepared for total hip arthroplasty if the fracture is displaced. Procedure was explained including risks, benefits, and alternatives to surgery. Consent obtained. History of Present Illness Reason for Consultation: . Requesting Physician: . Attending Physician: Jace Carroll MD .51 year old patient with left hip fracture. She was walking on campus yesterday evening when she missed a step and fell several feet, landed on her feet but then onto her left hip. She complains only of left hip pain. Denies hip pain prior to the fall. She is npo. She did test positive for covid. Allergies Allergy/AdvReac Type Severity Reaction Status Date / Time contact metal agent Allergy Intermediate Rash Verified 09/08/22 22:10 house dust Allergy Intermediate SNEEZING/CO Verified 09/08/22 22:14 NGESTION pollen extracts Allergy Intermediate SNEEZING/CONGESTION/ASTHMA Verified 09/08/22 22:14 ATTACK Home Medications Medication Instructions Recorded Confirmed Type inhalational spacing device #1 ea 08/03/21 09/09/22 Rx (Aerochamber Plus Flow-Vu) fluticasone propionate 50 2 spray intranasal DAILY PRN 12/14/21 09/08/22 History mcg/actuation nasal allergy symptoms spray,suspension (Allergy Relief (fluticasone)) budesonide-formoterol HFA 160 2 inh inhalation BID PRN 02/17/22 09/08/22 History mcg-4.5 mcg/actuation aerosol CONGESTION/COUGH/SOB/WHEEZING inhaler (Symbicort) multivitamin (Daily Multi-Vitamin 1 tab PO QAM PRN NEEDED PER PT 02/17/22 09/08/22 History tablet) vitamin B complex 1 cap PO DAILY PRN NEEDED PER PT 03/03/22 09/08/22 History cranberry 500 mg capsule 500 mg PO DAILY 09/08/22 09/08/22 History omega 8-ged-sdw-fish oil 1,000 mg 1 cap PO DAILY 09/08/22 09/08/22 History (120 mg-180 mg) capsule (Fish Oil) vit A 7,160 unit-vit C 113 mg-vit 1 tab PO DAILY PRN NEEDED PER 09/08/22 09/08/22 History E 100 xgkq-dlsd-gngfwb tablet PT. 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 Mother Hypertension Other No family history of adverse response to anesthesia No family history of bleeding disorder Denies family history of Ovarian cancer Prostate cancer Myocardial infarction Breast cancer Lung cancer Colorectal cancer Stroke Social History Smoking Status: Never smoker Second Hand Exposure: No; Hx Alcohol Use: No Hx Substance Use: No Preferred Language: Irish Communication Ability: Effective Visual Impairment: Limited Hearing Ability: Normal Compo Conveyor Operator Required: No Beliefs That Will Affect Care: None marital status: Current Living Situation: Spouse current occupational status: employed and unemployed current occupation: Homemaker How many Children do You have: 1 Feels Safe at Home: Yes Safety Concerns: Feels Safe At This Time Childhood Exposure to Second-Hand Smoke: Yes caffeine: Yes (tea daily ) Dental Care, Regularly: Yes Physical Activity Frequency: 1-2 Times per Week Seatbelt Use: always Sunscreen Use: No Assistive Devices: Glasses Review of Systems All systems reviewed & are unremarkable except as noted in HPI & below. Physical Exam . alert and oriented. NAD Left leg: appears well aligned. Not externally rotated. hip slightly flexed. Able to dorsiflex and plantarflex. NVI Results & Data Results & Data Laboratory Results . Diagnostic Findings .xrays findings show a valgus impacted femoral neck fracture of the left hip PG Care Time/CCT Total # of Minutes Spent Total Time Spent with Patient: Total time spent is greater than 50% in coordination of care (as documented) at patient's floor/unit and/or counseling patient: Coding Level of Care Code INP/OBS CONSULT LVL 4, 60 MIN Diagnoses Closed left hip fracture S72.002A Encounter type: initial encounter (1) Closed left hip fracture Encounter type: initial encounter Qualified Code(s): S72.002A - Fracture of unspecified part of neck of left femur, initial encounter for closed fracture
--- NOTE | 2022-09-09 12:07 | Hospitalist Progress Note ---
Date of Service September 09, 2022 Assessment & Plan (1) Closed left hip fracture: Plan: - L hip fracture sustained as a result of a mechanical fall - Currently NPO in anticipation of surgical intervention - Orthopedics consulted, appreciate input - Pain control to be utilized with Tylenol and Morphine for breakthrough - Check Vitamin D level - PT/OT eval pod #1 (when cleared by ortho) - No h/o PE or DVT -- however, given her COVID+ status, would consider placing h er on more aggressive DVT ppx post operatively (2) COVID-19: Plan: - Nasal congestion x 2 weeks per pt - No dyspnea or hypoxia - Does not meet any criteria to start on Decadron or Remdesivir - Not a high risk of complications (<65 ys, not overweight, no h/o HTN or DM) (3) Active asthma: Plan: - Without acute exacerbation - Continue Albuterol inhaler PRN - Mucinex and Flonase ordered, continue Plan Order AM labs for 09/10. Above plan of care to be d/w Dr. Carroll. Admission and Anticipated Discharge Date Admission Date: September 08, 2022 Subjective Patient seen on daily rounds this morning. C/o L hip pain and dry mouth. Has some nasal congestion but denies cough, dyspnea, fever/chills, cp, or GI symptoms. Physical Exam Physical Exam: GENERAL: 51 yo Well-developed, well-nourished F. NAD. LUNGS: Nonlabored, mild expiratory wheezes in LLL, no rhonchi or rales CARDIOVASCULAR: Regular rate and rhythm. EXTREMITIES: No edema. LLE NV intact Results & Data Results & Data ([facility]) Vital Signs (Past 12 Hours) Vital Signs Temp Pulse Pulse Resp BP BP Pulse Ox 09/09/22 08:43 36.6 C 72 18 151/81 H 96 09/09/22 02:00 09/09/22 02:00 36.7 C 71 18 146/77 H 96 09/09/22 00:30 78 19 99 09/09/22 00:13 69 12 119/73 95 09/09/22 00:00 72 14 97 09/09/22 00:59 70 18 134/72 97 09/09/22 00:13 66 18 119/73 96 O2 Del Method 09/09/22 08:43 Room Air 09/09/22 02:00 Room Air 09/09/22 02:00 Room Air 09/09/22 00:30 09/09/22 00:13 09/09/22 00:00 09/09/22 00:59 09/09/22 00:13 Room Air PG Care Time/CCT Total # of Minutes Spent Total Time Spent with Patient: Total time spent is greater than 50% in coordination of care (as documented) at patient's floor/unit and/or counseling patient: Coding Level of Care Code 83958 SUB INP/OBS CARE 235MIN Diagnoses Closed left hip fracture S72.002A Encounter type: initial encounter COVID-19 U07.1 Active asthma J45.909 (1) Closed left hip fracture Encounter type: initial encounter Qualified Code(s): S72.002A - Fracture of unspecified part of neck of left femur, initial encounter for closed fracture
--- NOTE | 2022-09-09 13:52 | Anesthesiology Consultation ---
Date of Service September 09, 2022 Assessment & Plan Chart Review Chart Review: direct entry midwife initiated History Surgery Operation Date: 09/09/22 09:40 Proposed Procedures p Left ORIF Hip Cannulated Screw Versus - Chicho Schaefer MD s Total Hip Arthroplasty - Chicho Schaefer MD Height/Weight Height: 5 ft 7 in Weight: 59.1 kg Allergies Allergy/AdvReac Type Severity Reaction Status Date / Time contact metal agent Allergy Intermediate Rash Verified 09/08/22 22:10 house dust Allergy Intermediate SNEEZING/CO Verified 09/08/22 22:14 NGESTION pollen extracts Allergy Intermediate SNEEZING/CONGESTION/ASTHMA Verified 22:14 ATTACK Medications Home Medications Medication Instructions Recorded Confirmed Last Taken inhalational spacing device #1 ea 08/03/21 09/09/22 Unknown (Aerochamber Plus Flow-Vu) fluticasone propionate 50 2 spray intranasal DAILY PRN 12/14/21 09/08/22 Unknown mcg/actuation nasal allergy symptoms spray,suspension (Allergy Relief (fluticasone)) budesonide-formoterol HFA 160 2 inh inhalation BID PRN 02/17/22 09/08/22 Unknown mcg-4.5 mcg/actuation aerosol CONGESTION/COUGH/SOB/WHEEZING inhaler (Symbicort) multivitamin (Daily Multi-Vitamin 1 tab PO QAM PRN NEEDED PER PT 02/17/22 09/08/22 Unknown tablet) vitamin B complex 1 cap PO DAILY PRN NEEDED PER PT 03/03/22 09/08/22 Unknown cranberry 500 mg capsule 500 mg PO DAILY 09/08/22 09/08/22 Unknown omega 3-suj-lpk-fish oil 1,000 mg 1 cap PO DAILY 09/08/22 09/08/22 Unknown (120 mg-180 mg) capsule (Fish Oil) vit A 7,160 unit-vit C 113 mg-vit 1 tab PO DAILY PRN NEEDED PER 09/08/22 09/08/22 Unknown E 100 trll-lbkx-gjuntg tablet PT. Active Medications Generic Name Dose Route Start Last Admin Trade Name Freq PRN Reason Stop Dose Admin Acetaminophen 650 mg 09/09/22 01:52 09/09/22 08:30 Acetaminophen 325 Mg Tab PO 10/09/22 01:51 650 mg Q4H PRN Administration pain/fever Fluticasone Propionate 1 sprays 09/09/22 09:00 09/09/22 08:30 Fluticasone Propionate Na Spr 16 Gm Btl NA 10/09/22 08:59 1 sprays BID EDINSON Administration Fluticasone/Vilanterol 1 puffs 09/09/22 09:00 09/09/22 08:30 Fluticasone/Vilanterol 200/25mcg 14 Puffs/Inhaler INH 10/09/22 08:59 1 puffs DAILY EDINSON Administration Guaifenesin 1,200 mg 09/09/22 09:00 09/09/22 08:30 Guaifenesin 600 Mg Tabcr PO 10/09/22 08:59 1,200 mg Q12 EDINSON Administration Past Medical History Medical History 2019 novel coronavirus-infected pneumonia (NCIP) Abnormality of lung on CXR 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 Mother Hypertension Other No family history of adverse response to anesthesia No family history of bleeding disorder Denies family history of Ovarian cancer Prostate cancer Myocardial infarction Breast cancer Lung cancer Colorectal cancer Stroke Past Surgical History Surgical History H/O colonoscopy 03/2014 repeat 10 yrs History of appendectomy History of brain surgery (~2013) [facility] [place] History of sinus surgery Social History Smoking Status: Never smoker Hx Alcohol Use: No Hx Substance Use: No Physical Exam Vital Signs Last Vital Signs Temp 97.9 F 09/09/22 08:43 Pulse 72 09/09/22 08:43 Resp 18 09/09/22 08:43 BP 151/81 H 09/09/22 08:43 Pulse Ox 96 09/09/22 08:43 O2 Del Method Room Air 09/09/22 08:43 Testing Laboratory Results 09/08/22 22:24 09/08/22 22:24 PT 10.3 Seconds (9.0-12.0) 09/08/22 22:24 INR 1.0 (0.9-1.1) 09/08/22 22:24 APTT 26.5 Seconds (21.0-31.0) 09/08/22 22:24 Urine Color Yellow 09/08/22 23:20 Urine Appearance Clear (Clear) 09/08/22 23:20 Urine pH 7.0 (4.5-7.5) 09/08/22 23:20 Ur Specific Sutter 1.007 (1.000-1.030) 09/08/22 23:20 Urine Protein Negative (Negative) 09/08/22 23:20 Urine Glucose (UA) Negative (Negative) 09/08/22 23:20 Urine Ketones Negative (Negative) 09/08/22 23:20 Urine Nitrite Negative (Negative) 09/08/22 23:20 Ur Leukocyte Esterase Trace (Negative) H 09/08/22 23:20 Urine WBC (Auto) 1-5 /hpf (0-5) 09/08/22 23:20 Urine RBC (Auto) 0-4 /hpf (0-4) 09/08/22 23:20 U Hyaline Cast (Auto) 0 /lpf (0-5) 09/08/22 23:20 U Epithel Cells (Auto) 0-5 /lpf (0-5) 09/08/22 23:20 Urine Bacteria (Auto) Negative (Negative) 09/08/22 23:20 Blood Type A Positive 09/08/22 22: Antibody Screen NEGATIVE 09/08/22 22:27 Electrocardiogram Date: 09/08/22 Normal sinus rhythm, rate 73 bpm Left posterior fascicular block Abnormal ECG When compared with ECG of 31-JUL-2021 10:52, No significant change was found Chest X-Ray Date: 09/08/22 Findings: + NAD Echocardiogram Date: 12/22/21 60-65% LV wall motion is normal Mild pulmonic valvular regurgitation There is trace tricuspid regurgitation RV systolic pressure is normal
[2022-09-09] MEDS ORDERED: LIDOCAINE 2% MPF LOCAL 5 ML VIAL INFIL ONE (14:27)
[2022-09-09] MEDS ORDERED: DEXAMETHASONE SOD INJ 4 MG/ML VIAL ONE (14:27)
[2022-09-09] MEDS ORDERED: ONDANSETRON INJ 2 MG/ML 2 ML VIAL ONE (14:27)
[2022-09-09] MEDS ORDERED: PROPOFOL IV EMULSION 10 MG/ML 20 ML VIAL IV ONE ×2 (14:27→14:38)
[2022-09-09] MEDS ORDERED: MIDAZOLAM HCL 1 MG/ML 2ML VIAL ONE (14:28)
[2022-09-09] MEDS ORDERED: fentaNYL citrate 100 MCG/2 ML VIAL ONE ×2 (14:28→14:35)
[2022-09-09] MEDS ORDERED: KETAMINE 50 MG/5 ML SYRINGE ONE (14:28)
[2022-09-09] MEDS ORDERED: GLYCOPYRROLATE 0.2 MG/ML VIAL ONE (14:32)
[2022-09-09] MEDS ORDERED: NEOSTIGMINE METHYLSULFATE 1 MG/ML 10ML VIAL ONE (14:32)
[2022-09-09] MEDS ORDERED: HYDROmorphone INJ 2 MG/ML SYR/VIAL IV PRN (14:39)
[2022-09-09] MEDS ORDERED: fentaNYL citrate 100 MCG/2 ML VIAL IV PRN (14:39)
[2022-09-09] MEDS ORDERED: ONDANSETRON INJ 2 MG/ML 2 ML VIAL IV PRN (14:39)
[2022-09-09] MEDS ORDERED: ATROPINE SULFATE 0.1 MG/ML 10ML SYR IV PRN (14:39)
[2022-09-09] MEDS ORDERED: BUPIVACAINE/EPINEPHRINE 0.5% MPF 1:200,000 30 ML VIAL ONE (14:39)
[2022-09-09] MEDS ORDERED: ePHEDrine sulfate 50 MG/ML AMP IV PRN (14:39)
[2022-09-09] MEDS ORDERED: ceFAZolin 2,000 MG/15 ML IV PUSH IV ONE (14:54)
[2022-09-09] MEDS ORDERED: ceFAZolin 2000MG 2,000 MG/15 ML SYR IV ONE (15:10)
--- NOTE | 2022-09-09 16:26 | Operative Report ---
PG Post Operative Report Pre & Post Diagnosis Operation Date: 09/09/22 09:40 Pre-Op Diagnosis: Left HIP VALGUS IMPACTED FEMORAL NECK FRACTURE Post-Op Diagnosis: Left valgus impacted femoral neck fracture I identified the patient and participated in the time-out.: Yes Procedure Operation Date: 09/09/22 09:40 Actual Procedures p cannulated screw fixation of left valgus impacted femoral neck fracture - Chicho Schaefer MD Surgeon Chicho Schaefer MD Division Supervisor The [employer] Estimated Blood Loss 20 Findings Consistent with Post-Op Diagnosis Specimens None Anesthesia Type General Complications none Disposition Accompanied Patient To Recovery: No Indications Patient is a 51-year-old female who sustained a fall yesterday. She had the cute onset of pain and discomfort. She brought to emergency room where x-rays revealed a valgus impacted femoral neck fracture. She was admitted by the medicine service, medically optimized indicated for surgical treatment. She denies any pre-existing hip problems or pain. Description of Procedure Operative implants consist of: 1 Synthes 6.5 mm partially-threaded long threaded cannulated screw x3 with 1 washer. The patient was taken the operating, identified, placed on the operating table supine position protectors were properly padded. IV antibiotics were by anesthesia team. A general anesthetic was implemented in the holding area due to COVID-positive status. The patient was then placed on the fracture table. The left leg was placed in boot traction the right leg was placed in a well-leg harrington. Some longitudinal traction was applied and we internally rotated foot so the kneecap pointed the ceiling. X-rays brought in. The fracture was valgus impacted and perfectly aligned on the lateral. I did put in a little bit of varus in order to close this down just slightly. The hip was then prepped and draped in usual sterile fashion. A 4 cm incision is made over the direct lateral aspect of the thigh in the area of the screw placement. Sharp dissection Through subcutaneous tissue down to the IT band. The IT band was incised longitudinally. The vastus lateralis was retracted anteriorly. I then placed 3 guidewires in the femoral neck 1 inferior, 1 superior and posterior and one superior and anterior. These were verified fluoroscopically. I then placed 3 a 6.5 partially-threaded long threaded cancellous screws over the guidewire with the posterior superior one half and a washer. Despite excellent fixation. Screws appropriate position. Attention drawn to closing. Nupathe wounds irrigated cosigns of irrigation. Injected locally with 30 cc of half percent Marcaine with epinephrine. The IT band was then closed with #1 Vicryl suture running fashion the subcutaneous tissue then closed with 2 layers of the deep layer #1 Vicryl suture and subcutaneous tissues with 2-0 Dexon suture in a buried interrupted fashion the skin was closed skin ambika. Legs then cleaned and dried and sterile dressing with Xeroform, 4 fours, foam tape was applied. The patient was then taken off the fracture table and transported back to the recovery room where she was brought out of general esthesia. The patient tolerated procedure well no complications. The Julio physician cafe assistant, was present for the entire procedure. His assistance was required for proper patient positioning, prepping and draping, placing the person on the fracture table, exposure, perform the technical details the operation, closure of the wound and placement of sterile bandage. I attest to the content of the Intraoperative Record and any orders documented therein. Any exceptions are noted below.
--- NOTE | 2022-09-09 17:00 | Fluoroscopy Report ---
FL hip LT 2-3V CLINICAL HISTORY: LT ORIF CANNULATED SCREWS VS. TOTAL hip arthroplasty. Left hip fracture COMPARISON STUDY: Left hip 09/08/2022. FLUOROSCOPY TIME: 48 seconds FLUOROSCOPY IMAGES: 4 EXPOSURE DOSE: Shania r = 7.54mGy FINDINGS: 3 cannulated screws traversing the left femoral neck fracture. The hardware appears intact. There is improved anatomic alignment. IMPRESSION: Fluoroscopic assistance as above. ACT 112: Negative or not required by law. Electronically signed by: Alejo Robins M.D. 09/09/2022 4:58 PM
--- NOTE | 2022-09-09 17:08 | Anesthesiology Progress Note ---
Date of Service September 09, 2022 Anesthesia Post Procedure Vital Signs Vital Signs: Temp Pulse Pulse Pulse Resp BP BP 09/09/22 17:00 61 12 134/67 09/09/22 16:50 36.8 C 60 14 115/64 09/09/22 16:40 67 16 122/78 09/09/22 16:32 36.7 C 81 12 133/73 09/09/22 14:26 37 C 86 20 121/70 09/09/22 08:43 36.6 C 72 18 151/81 H 09/09/22 02:00 09/09/22 02:00 36.7 C 71 18 146/77 H 09/09/22 00:30 78 19 09/09/22 00:13 69 12 119/73 09/09/22 00:00 72 14 09/08/22 23:30 74 12 09/08/22 23:00 79 16 09/08/22 22:58 76 19 09/09/22 00:59 70 18 134/72 09/09/22 00:13 66 18 119/73 09/08/22 23:05 76 09/08/22 20:07 36.6 C 79 18 135/90 Pulse Ox O2 Del Method O2 Flow Rate 09/09/22 17:00 99 Room Air 09/09/22 16:50 100 Room Air 09/09/22 16:40 100 Oxymask 10 09/09/22 16:32 100 Oxymask 10 09/09/22 14:26 100 Room Air 09/09/22 08:43 96 Room Air 09/09/22 02:00 Room Air 09/09/22 02:00 96 Room Air 09/09/22 00:30 99 09/09/22 00:13 95 09/09/22 00:00 97 09/08/22 23:30 97 09/08/22 23:00 09/08/22 22:58 09/09/22 00:59 97 09/09/22 00:13 96 Room Air 09/08/22 23:05 09/08/22 20:07 100 Room Air Pain Intensity Left Hip: Pain Intensity: 5 Transfer of Care Handoff Completed per policy Notes Mental Status: alert / awake / arousable and participated in evaluation Patient Amnestic to Procedure: Yes Nausea / Vomiting: adequately controlled Pain: adequately controlled Airway Patency, RR, SpO2: stable & adequate BP & HR: stable & adequate Hydration State: stable & adequate Anesthetic Complications: no major complications apparent and Pt Satisfied with anesthetic care
[2022-09-09] MEDS ORDERED: BUDESONIDE/FORMOTEROL FUMARATE 160/4.5 60 PUFFS/INHALER INH PRN (17:31)
[2022-09-09] MEDS ORDERED: FLUTICASONE PROPIONATE NA SPR 16 GM BTL NAE PRN (17:31)
[2022-09-09] MEDS ORDERED: VITAMIN B COMPLEX TAB PO PRN (17:31)
[2022-09-09] MEDS ORDERED: NON-FORMULARY MEDICATION (Multivitamin [Daily Multi-Vitamin] tablet) PO PRN (17:31)
[2022-09-09] MEDS ORDERED: CEROVITE ADV FORMULA TAB PO PRN (17:39)
[2022-09-09] MEDS: ceFAZolin 1000MG 1,000 MG/7.5 ML SYR IV SCH (22:11)
--- NOTE | 2022-09-09 22:30 | Electrocardiogram Report ---
Test Reason : Blood Pressure : / mmHG Vent. Rate : 073 BPM Atrial Rate : 073 BPM P-R Int : 158 ms QRS Dur : 094 ms QT Int : 432 ms P-R-T Axes : 074 145 035 degrees QTc Int : 475 ms Normal sinus rhythm Right axis deviation Nonspecific T wave abnormality Abnormal ECG When compared with ECG of 31-JUL-2021 10:52, No significant change was found Confirmed by Alexis Aguirre ([id number]) on 09/09/2022 10:30:35 PM Referred By: REFERRED SELF Confirmed By:Rashid Aguirre
--- NOTE | 2022-09-09 23:16 | Billing Data ---
Date of Service September 09, 2022 Coding Level of Care Code 46268 INT INP/OBS CARE
[2022-09-10] MEDS: ASPIRIN 81 MG ECTAB PO SCH ×3 (02:09→19:53)
[2022-09-10 06:53] LABS: Basophils # (auto) 0.02 K/uL (0-0.2); Basophils % (auto) 0.2 %; Eosinophils # (auto) 0.01 K/uL (0-0.50); Eosinophils % (auto) 0.1 %; Hematocrit (blood only) 39.8 % (37.0-47.0); Hemoglobin 13.3 g/dl (12.0-16.0); Immature Granulocytes # (auto) 0.05 K/uL (0.01-0.20); Immature Granulocytes % (auto) 0.5 %; Lymphocytes # (auto) 1.26 K/uL (1.2-3.4); Mean Corpuscular Hemoglobin 27.7 pg (25.0-34.0); Mean Corpuscular Hgb Conc 33.4 g/dL (32.0-36.0); Mean Corpuscular Volume 82.7 fL (80.0-100.0); Mean Platelet Volume 10.4 fL (9.4-12.4); Monocytes # (auto) 0.72 K/uL (0.11-0.59); Monocytes % (auto) 7.4 %; Neutrophils # (auto) 7.63 K/uL (1.40-6.50); Neutrophils % (auto) 78.8 %; Platelet Count 262 K/uL (130-400); RDW Coefficient of Variation 12.5 % (11.5-14.5); RDW Standard Deviation 38.2 fL (36.4-46.3); Red Blood Count 4.81 M/uL (4.20-5.40); White Blood Count 9.69 K/ul (4.8-10.8)
[2022-09-10] MEDS: ceFAZolin 1000MG 1,000 MG/7.5 ML SYR IV SCH (07:14)
[2022-09-10 07:17] LABS: BUN Creatinine Ratio 18.1 (10-20); Calcium 9.7 mg/dl (8.5-10.1); Creatinine Clr Calc Pharmacy 86.2 ml/min; Est GFR (African American) 112.4 ml/min; Potassium 4.1 mmol/L (3.5-5.1)
[2022-09-10] MEDS: guaiFENesin 600 MG TABCR PO SCH ×2 (07:54→19:53)
[2022-09-10] MEDS: OMEGA-3 (PURIFIED FISH OIL) 1 GM CAP PO SCH (07:54)
[2022-09-10] MEDS: FLUTICASONE/VILANTEROL 200/25MCG 14 PUFFS/INHALER INH SCH (07:54)
[2022-09-10] MEDS: FLUTICASONE PROPIONATE NA SPR 16 GM BTL SCH ×2 (07:55→19:53)
[2022-09-10] MEDS ORDERED: NON-FORMULARY MEDICATION (Cranberry 500 mg Capsule) PO SCH (09:00)
--- NOTE | 2022-09-10 09:14 | Progress Notes ---
DATE OF SERVICE: 09/10/2022. SUBJECTIVE: A 51-year-old female, postoperative day 1 from cannulated screw fixation of a valgus imp acted femoral neck fracture. She is doing pretty well. Having a little bit of pain, but very manage able. No new complaints. OBJECTIVE: VITAL SIGNS: Temperature 36.2. Vital signs are stable. EXTREMITIES: Examination of the left hip reveals the patient is lying in bed comfortably. The left leg is well aligned. Dressing is clean, dry and intact. Thigh is soft and supple. She is neurologi ebony intact. LABORATORY DATA: Hemoglobin 13.3. Hematocrit 39.8. Electrolytes are stable. ASSESSMENT: A 51-year-old female, postoperative day 1 from cannulated screw fixation of a valgus imp acted femoral neck fracture. Orthopedically, she is doing fine. Pain is controlled. PLAN: 1. DVT prophylaxis includes thigh-high TEDs, SCDs and we would recommend a baby aspirin twice a day for 6 weeks. 2. PT/OT. She is touch weightbearing on this left lower extremity for the next 6 weeks. 3. Pain control, doing okay with current pain regimen. 4. Disposition: She is orthopedically okay for discharge any time medically stable. I need to see her back two to three weeks out from surgery date. Her activity level is touch weightbearing left le g. No other real restrictions. Any orthopedic questions can be directed to me at [phone]. Job ID: [id number]
--- NOTE | 2022-09-10 13:03 | Hospitalist Progress Note ---
Date of Service September 10, 2022 Assessment & Plan (1) Closed left hip fracture: Plan: - L hip fracture sustained as a result of a mechanical fall s/p ORIF pod#1 - Orthopedics consulted, surgical repair performed by Dr. Schaefer - Pain control to be utilized with Tylenol and Morphine for breakthrough - Vitamin D level 39 - sufficient - PT/OT eval completed - recommending rehab if someone cannot check on her throughout the day (lives w/ who works) - No h/o PE or DVT -- however, given her COVID+ status, will consider placing her on more aggressive DVT ppx post operatively (2) COVID-19: Plan: - Nasal congestion x 2 weeks per pt - No dyspnea or hypoxia - Does not meet any criteria to start on Decadron or Remdesivir - Not a high risk of complications (<65 ys, not overweight, no h/o HTN or DM) (3) Active asthma: Plan: - Without acute exacerbation - Continue Albuterol inhaler PRN - Mucinex and Flonase ordered, continue Plan Will await another day prior to d/c'ing home. Will need HH. Discussed with case management who will assist in arranging this prior to dc. Above plan of care to be d/w Dr. Carroll. Admission and Anticipated Discharge Date Admission Date: September 08, 2022 Subjective Patient seen on daily rounds this morning. She was participating with OT during my visit. Pt reports hip pain but states that it is fairly well controlled. No cp or dyspnea. Physical Exam Physical Exam: GENERAL: 51 yo Well-developed, well-nourished F. NAD. LUNGS: Nonlabored, w/o wheezes, rhonchi or rales CARDIOVASCULAR: Regular rate and rhythm. EXTREMITIES: No edema. LLE NV intact. Neg octavio's sign. Results & Data Results & Data ([facility]) Vital Signs (Past 12 Hours) Vital Signs Temp Pulse Resp BP Pulse Ox Pulse Ox O2 Del Method 09/10/22 12:08 36.7 C 78 16 100/58 L 99 Room Air 09/10/22 07:55 Room Air 09/10/22 10:57 95 09/10/22 08:30 36.6 C 80 16 108/75 98 Room Air 09/10/22 01:48 Room Air O2 Flow Rate 09/10/22 12:08 09/10/22 07:55 02/18/23 10:57 0 09/10/22 08:30 09/10/22 01:48 Laboratory Results 09/10/22 06:11 09/10/22 06:11 PG Care Time/CCT Total # of Minutes Spent Total Time Spent with Patient: Total time spent is greater than 50% in coordination of care (as documented) at patient's floor/unit and/or counseling patient: Coding Level of Care Code 22124 SUB INP/OBS CARE 235MIN Diagnoses Closed left hip fracture S72.002A Encounter type: initial encounter COVID-19 U07.1 Active asthma J45.909 (1) Closed left hip fracture Encounter type: initial encounter Qualified Code(s): S72.002A - Fracture of unspecified part of neck of left femur, initial encounter for closed fracture
[2022-09-10] MEDS: ACETAMINOPHEN 325 MG TAB PO PRN (13:14)
[2022-09-10] MEDS ORDERED: SODIUM CHLORIDE 0.65% NA SOLN 45 ML (OCEAN) ONE (14:34)
[2022-09-11] MEDS: ACETAMINOPHEN 325 MG TAB PO PRN (05:43)
[2022-09-11] MEDS: guaiFENesin 600 MG TABCR PO SCH (08:14)
[2022-09-11] MEDS: FLUTICASONE PROPIONATE NA SPR 16 GM BTL SCH (08:14)
[2022-09-11] MEDS: ASPIRIN 81 MG ECTAB PO SCH (08:14)
[2022-09-11] MEDS: FLUTICASONE/VILANTEROL 200/25MCG 14 PUFFS/INHALER INH SCH (08:15)
[2022-09-11] MEDS: OMEGA-3 (PURIFIED FISH OIL) 1 GM CAP PO SCH (09:35)
[2022-09-11] MEDS ORDERED: oxyCODONE/ACETAMINOPHEN 5mg/325mg TAB PO PRN ×2 (11:01→11:02)
--- NOTE | 2022-09-11 11:22 | Discharge Summary ---
Date of Service September 11, 2022 Admission HPI Per Admitting Provider 51yo Female with PMH asthma here for fall, hip fracture. Patient states earlier today she was walking on [facility] looking for her car, misjudged where the steps were and walked off a ledge, landed on her feet however felt unsteady and fell on her left side did not hit her head. Since then she feels pain moving her left leg. XR demonstrates fracture of left hip. Patient can still move both feet has sensation in both feet, does not have bruising on her hip, no pain on light touch.. She denies any nausea fever pain elsewhere rashes. Patient states she has recently stopped her symbicort for her asthma given she did not like congestion side effect, states her congestion has been worse since. She denies smoking alcohol, not currently on blood thinners Principal Diagnosis 1. Left Hip Fx s/p fall 2. COVID-19 Discharge Exam GENERAL: 51 yo Well-developed, well-nourished F. NAD. LUNGS: Nonlabored, w/o wheezes, rhonchi or rales CARDIOVASCULAR: Regular rate and rhythm. EXTREMITIES: No edema. LLE NV intact. Neg octavio's sign. Discharge Data Allergies Allergy/AdvReac Type Severity Reaction Status Date / Time contact metal agent Allergy Intermediate Rash Verified 09/08/22 22:10 house dust Allergy Intermediate SNEEZING/CO Verified 09/08/22 22:14 NGESTION pollen extracts Allergy Intermediate SNEEZING/CONGESTION/ASTHMA Verified 09/08/22 22:14 ATTACK Consultations 09/08/22 22:07 ED Decision to Admit Stat 09/08/22 22:13 Consult Orthopedic Surgery Routine Procedures Performed Operation Date: 09/09/22 09:40 Actual Procedures p Left Hip ORIF - Chicho Schaefer MD Ordered Studies Hip/Pelvis X-Ray 09/08/22 20:41 XR hip LT 2V w pelvis CLINICAL HISTORY: fall, left hip pain TECHNIQUE: 6 views of the right hip and single frontal view of the pelvis were obtained. Comparison: None available at the time of this dictation. FINDINGS: There is a subcapital fracture of the left hip. Joint spaces are well-preserved. Soft tissue swelling is seen. IMPRESSION: Subcapital fracture of the left hip with associated soft tissue swelling. ACT 112: Negative or not required by law. Electronically signed by: Tom Brumfield M.D. 09/09/2022 8:03 AM Chest X-Ray 09/08/22 21:37 XR chest 1V portable CLINICAL HISTORY: pre-op TECHNIQUE: Single frontal radiograph of the chest was obtained. Comparison: Comparison is made to chest radiograph 09/03/2021 FINDINGS: No lines and tubes are seen. The cardiomediastinal silhouette is normal. The lungs are clear. No evidence of pleural effusion or pneumothorax. IMPRESSION: No acute chest disease. ACT 112: Negative or not required by law. Electronically signed by: Tom Brumfield M.D. 09/09/2022 8:09 AM Hip X-Ray 09/09/22 12:30 FL hip LT 2-3V CLINICAL HISTORY: LT ORIF CANNULATED SCREWS VS. TOTAL hip arthroplasty. Left hip fracture COMPARISON STUDY: Left hip 09/08/2022. FLUOROSCOPY TIME: 48 seconds FLUOROSCOPY IMAGES: 4 EXPOSURE DOSE: Ka, r = 7.54mGy FINDINGS: 3 cannulated screws traversing the left femoral neck fracture. The hardware appears intact. There is improved anatomic alignment. IMPRESSION: Fluoroscopic assistance as above. ACT 112: Negative or not required by law. Electronically signed by: Alejo Robins M.D. 09/09/2022 4:58 PM Hospital Course (1) Closed left hip fracture: - L hip fracture sustained as a result of a mechanical fall s/p ORIF pod#2 - Orthopedics consulted, surgical repair performed by Dr. Schaefer - Pain control ordered with Tylenol and Morphine for breakthrough prior to surgery - Vitamin D level 39 - sufficient - PT/OT eval completed - recommending rehab if someone cannot check on her throughout the day - No h/o PE or DVT -- however, given her COVID+ status putting her at higher risk for clots, will dc home with 35 days of Xarelto 10mg for DVT ppx - Ortho did not order pain meds post op - wrote for Percocet 5/325mg 1-2 tabs q4h prn moderate to severe hip pain, will rx upon dc (2) COVID-19: - Nasal congestion x 2 weeks per pt - No dyspnea or hypoxia - Does not meet any criteria to start on Decadron or Remdesivir - Not a high risk of complications (<65 ys, not overweight, no h/o HTN or DM) - Does not require any outpatient treatment, supportive care (3) Active asthma: - Without acute exacerbation - Continue Albuterol inhaler PRN - Mucinex and Flonase ordered, continue Plan Patient relates that her can stay home in between classes and assist her at home. She will need a walker and will arrange home health for pt/ot prior to dc which was relayed to case management. She is medically and hemodynamically stable for discharge home today. Above plan of care has been d/w Dr. Carroll who will also see and evaluate patient prior to discharge. Total Time Total Time Spent Total Time Spent (In Minutes): >30 minutes Discharge Plan Discharge Items Patient Disposition: Home - Home Health Services Reason For Visit: HIP FRACTURE LEFT Discharge Diagnosis: Screw fixation of left hip fracture Condition on Discharge: Good Activity: Per Instructions section Lifting: None Bathing: May shower/bathe in 3 days Weightbearing: Left toe touch Weightbearing Comment: Toe-touch weightbearing on left leg for 6 weeks Non-emergency contact: Primary Care Provider and Surgeon Call non-emergency contact if: you have any medication questions and your symptoms worsen Follow-up/Referrals: Fred Andrews DO [Primary Care Provider] - Diet: Regular Addtl Attending Provider Instructions: You were hospitalized with a left hip fracture and were incidentally found to be positive for COVID-19. Fortunately, you are not having any significant symptoms related to your COVID-19 infection and do not require any treatment. Just use supportive measures to treat including Tylenol/Motrin for fever, rest, fluids. You can use over the counter Mucinex or Pseudophed as needed for congestion. Please instructions provided below by orthopedics. You will need to call this week to schedule a follow up appointment with your surgeon in 2 weeks. You are being prescribed Xarelto 10mg once a day which is a low dose blood thinner to prevent blood clots from your surgery. You will take this medication for the next 35 days and then you can discontinue. You are also being prescribed a pain medication called Percocet which contains Oxycodone and Tylenol. You can take 1 pill every 4 hours as needed for moderate pain and 2 pills every 4 hours as needed for severe pain. Please be mindful that this medication contains 325mg of Tylenol PER pill. You may not exceed 3000mg of Tylenol in a 24 hour period of time. Try to get up once every hour while at home. Have your assist you if needed or use a walker to ambulate. It is recommended that you follow up with your family doctor within 1 week of discharge. If you have any questions after you leave the hospital, you may call the nonemergency number listed on your discharge paperwork. In the event of a medical emergency, call 911. Addtl Prep Manager Provider Instructions: May remove dressing and shower. Toe-touch weight bearing on left leg for 6 weeks Follow-up Orthopedic appointment 2-3 weeks from surgery date Pending Studies at Discharge: No Stand-Alone Forms: [facility] [employer], Smoking Cessation Medications and DC Order Prescriptions: New oxycodone-acetaminophen [Percocet] 5-325 mg Tablet 1 - 2 tab PO Q4H PRN (Reason: pain) Qty: 30 0RF Xarelto 10 mg tablet 10 mg PO DAILY 35 Days Qty: 35 0RF Continued fluticasone propionate [Allergy Relief (fluticasone)] 50 mcg/actuation spray,suspension 2 spray intranasal DAILY PRN (Reason: allergy symptoms) Rx Instructions: administer into each nostril vitamin B complex Capsule 1 cap PO DAILY PRN (Reason: NEEDED PER PT) budesonide-formoterol [Symbicort] 160-4.5 mcg/actuation HFA aerosol inhaler 2 inh inhalation BID PRN (Reason: CONGESTION/COUGH/SOB/WHEEZING) Rx Instructions: use with spacer device multivitamin [Daily Multi-Vitamin] Tablet 1 tab PO QAM PRN (Reason: NEEDED PER PT) (DME) Aerochamber Plus Flow-Vu Spacer See Rx Instructions .Route Qty: 1 0RF Rx Instructions: As directed cranberry 500 mg Capsule 500 mg PO DAILY Rx Instructions: administer with meals omega [id number] oil [Fish Oil] 1,000 mg (120 mg-180 mg) Capsule 1 cap PO DAILY Eye Vitamin and Minerals [id number] Tablet 1 tab PO DAILY PRN (Reason: NEEDED PER PT.) Admission Data Admit Date/Time: 09/08/22 22:13 Attending Provider: Jace Carroll Admit Provider: Amber Cochran Primary Care Provider: Fred Andrews Other Providers: Grzegorz Brooks ; Chicho Schaefer. Coding Level of Care Code HOSP INP/OBS DISCH >30 MIN Diagnoses Closed left hip fracture S72.002A Encounter type: initial encounter COVID-19 U07.1 Active asthma J45.909 Home Health Attestation I certify that this patient is under my care and that I, or a physicians field technical assistant working with me, had a face to-face encounter that meets the home health [id number] encounter requirements with this patient. The encounter with the patient was in whole, or in part, for the following medical condition, which is the primary reason for home health care (list m edical condition): I certify that, based on my findings, the following services are medically necessary home health services: My clinical findings support the need for the above services because: Further, I certify that my clinical findings support that this patient is homebound (i.e. absences from home require considerable and taxing effort and are for medical reasons or sabianist services or infrequently or of short duration when for other reasons) because: Certification for Home Health Services: Based on the above findings, I certify that this patient is confined to the home and needs intermittent [facility] care, physical therapy and/or speech t herapy or continues to need occupational therapy. The patient is under my care, and I have initiated the establishment of the plan of care. This patient will be followed by a physician who will periodically review the plan of care.
== END 2022-09-11 17:00 | disposition home health service (06) | DRG 480 ==
LOC: ED 19:51 → SUATTDRO 22:13 → 3N 22:13